=== PATIENT | female | born 1955 | race Caucasian/White ===

== ENCOUNTER 2017-02-28 16:05 | Inpatient (IN) ==
[2017-02-28] MEDS ORDERED: NS 500 ML IV ONE (16:38)
[2017-02-28] MEDS ORDERED: PHENERGAN IV ONE ×2 (16:38→20:00)
[2017-02-28] MEDS ORDERED: SODIUM CHLORIDE 0.9% INJ ONE ×2 (16:38→20:00)
[2017-02-28 17:27] LABS: MANUAL DIFF NEEDED? NO
[2017-02-28 17:35] LABS: BASO% 0.2 % (0.0-0.8); HEMATOCRIT 44.9 % (37.0-47.0); HEMOGLOBIN 15.3 g/dL (12.0-16.0); IMM GRAN# 0.03 X1000 (0.0-0.04); IMM GRAN% 0.2 % (0.0-0.5); LYMPH# 1.89 X1000 (1.2-3.4); LYMPH% 15.1 % (20.5-51.1); MCH 30.1 PG (27-31); MCHC 34.1 g/dL (33-37); MCV 88.4 FL (81-99); MONO# 0.62 X1000 (0.11-0.59); MONO% 4.9 % (1.7-9.3); NEUT% 79.6 % (42.2-75.2); PLT 325 X1000 (130-400); RBC 5.08 XMIL (4.2-5.4)
[2017-02-28 17:49] LABS: ALBUMIN 4.1 g/dL (3.5-5.0); CALCIUM 8.5 mg/dL (8.8-10.2); TOTAL BILIRUBIN 0.71 mg/dL (0.20-1.00); TOTAL PROTEIN 6.7 g/dL (6.3-8.3)
--- NOTE | 2017-02-28 17:54 | PROVIDER DOCUMENTATION ---
This chart was entered by Selena Alcala Scribe, acting as scribe for Karthik Stuart MD. HPI-General Adult - General Source: patient - History of Present Illness -Gen Adult Nature of Presenting Problems: 61 Y/O F presents to ER by EMS with the complain nausea/vomit and diarrhea. pt states that she was in the store and started to feel sick and came to her and started to vomit. pt states that she felt weakness in her L side and called ambulance. pt has hx of gastropresis and has had this kind of episode in the past. Location of Pain/Injury: reports: other (L side weakness) Pain Radiation: reports: no radiation Severity: reports: moderate Onset/Duration: reports: just prior to arrival Timing: reports: still present Associated Symptoms: reports: diarrhea, nausea, vomiting Similar Symptoms Previously?: Yes Recently seen or treated by another doctor?: No <Karthik Stuart - Last Filed: 02/28/17 17:54> - General Source: patient <DiamanteEarl WhitneyMitchell - Last Filed: 02/28/17 20:59> - General Chief Complaint: N/V/D Stated Complaint: DECREASED LOC, FOUND IN CAR Time Seen by Provider: 02/28/17 16:32 Allergies/Adverse Reactions: Patient Allergies Allergy/AdvReac Type Severity Reaction Status Date / Time metoclopramide [From Reglan] AdvReac NAUSEA/VOMI Verified 02/28/17 16:36 TING Home Medications: Home Medication List Medication Instructions Recorded Confirmed Last Taken Type Insulin Glargine [Lantus] 60 unit SUBQ QHS 10/23/14 02/28/17 02/27/17 21:00 History Venlafaxine [Effexor] 75 mg PO DAILY 10/23/14 02/28/17 02/28/17 08:00 History Ondansetron HCl [Zofran] 1 - 2 tab PO Q6H PRN PRN #15 tablet 05/18/15 02/28/17 02/28/17 16:00 Rx Insulin Regular, Human [Novolin R] 1 each SUBQ AC + HS 05/20/15 02/28/17 21:00 History Promethazine [Phenergan] 25 mg PO Q6H PRN PRN #30 tablet 05/23/15 02/28/17 Unknown Rx Levothyroxine Sodium [Synthroid] 1 tab PO DAILY 02/28/17 02/28/17 02/28/17 08: 00 History Review of Systems - Adult - REVIEW OF SYSTEMS - ADULT Constitutional: reports: no symptoms reported Eyes: reports: no symptoms reported Ears, Nose, Mouth & Throat: reports: no symptoms reported Cardiovascular: reports: no symptoms reported Respiratory: reports: no symptoms reported Gastrointestinal: reports: diarrhea, nausea, vomiting. denies: abdominal pain Genitourinary: reports: no symptoms reported Musculoskeletal: reports: other (L side weakness). denies: back pain, neck pain Integumentary: reports: no symptoms reported Neurological: reports: no symptoms reported Psychiatric: reports: no symptoms reported Endocrine: reports: no symptoms reported Hematologic/Lymphatic: reports: no symptoms reported Allergic/Immunologic: reports: no symptoms reported All Other Systems: Reviewed and Negative <Karthik Stuart - Last Filed: 02/28/17 17:54> - REVIEW OF SYSTEMS - ADULT Constitutional: denies: fever <Earl Bobby - Last Filed: 02/28/17 20:59> Past History - Adult - PAST MEDICAL HISTORY-ADULT Review of Records: reports: Old Records Reviewed, Nursing Assessment Review Cardiovascular: reports: other (hypotension) Gastrointestinal: reports: GERD, ulcer, other (gallbladder dyskinesis, gastroparesis) Psychiatric: reports: anxiety, depression Endocrine/Immune: reports: Diabetes - PRIOR SURGERIES/PROCEDURES Surgical/Procedure History: reports: EGD, colonoscopy, cholecystectomy, BTL, other (breast bx) - IMMUNIZATION STATUS Childhood Immunizations: See Nurse Assessment Flu Vaccine: See Nurse Assessment <Karthik Stuart - Last Filed: 02/28/17 17:54> - PAST MEDICAL HISTORY-ADULT Review of Records: reports: Old Records Reviewed, Nursing Assessment Review, Medications Reviewed, Social history reviewed & non-contributory. <Earl Bobby - Last Filed: 02/28/17 20:59> Physical Exam-General - PHYSICAL EXAM-ADULT Initial Vital Signs Reviewed: Yes - CONSTITUTIONAL General Appearance: mild distress, lethargic - EYES Eyes: PERRL/EOMI, pink conjunctivae - HEAD, EARS, NOSE, MOUTH & THROAT HENMT: moist mucous membranes, normal ENT inspection, TMs normal - NECK Neck: non-tender, full range of motion, supple - RESPIRATORY Respiratory: chest non-tender, lungs clear, normal breath sounds - CARDIOVASCULAR Cardiovascular: normal peripheral pulses, regular rate, rhythm, no edema - GASTROINTESTINAL (ABDOMEN) Abdominal Exam: normal bowel sounds, non tender, soft - MUSCULOSKELETAL Back Exam: normal inspection, no CVA tenderness, no vertebral tenderness Extremity: normal inspection. negative: no pedal edema, no calf tenderness - SKIN Integumentary: normal color, normal turgor, warm/dry - NEUROLOGIC Neurologic: grossly normal, no motor/sensory deficits - PSYCHIATRIC Psych/Mental Status: normal mood/affect, normal thought content, normal thought process, oriented x 3 <Karthik Stuart - Last Filed: 02/28/17 17:54> - PHYSICAL EXAM-ADULT Initial Vital Signs Reviewed: Yes - CONSTITUTIONAL General Appearance: mild distress <Earl Bobby - Last Filed: 02/28/17 20:59> Progress - PLAN OF CARE/RESULTS Progress/Plan/Lab Results: Vital Signs - 8 hr 02/28/17 16:22 Temperature 98.0 F Pulse Rate 74 Respiratory Rate 22 Blood Pressure 155/93 O2 Sat by Pulse Oximetry 100 Result Diagrams: 02/28/17 17:12 02/28/17 17:12 - CHANGE OF SHIFT REPORT (ED Provider) Report Given and Care Transferred to:: Time of Transfer: 17:54 Items Pending: Labs <Karthik Stuart - Last Filed: 02/28/17 17:54> - PLAN OF CARE/RESULTS Progress/Plan/Lab Results: Vital Signs - 8 hr 02/28/17 16:22 02/28/17 18:08 02/28/17 20:28 Temperature 98.0 F Pulse Rate 74 91 H 82 Respiratory Rate 22 20 Blood Pressure 155/93 166/81 150/76 O2 Sat by Pulse Oximetry 100 99 98 Laboratory Results - last 24 hr 02/28/17 02/28/17 17:12 17:12 WBC 12.55 H RBC 5.08 Hgb 15.3 Hct 44.9 MCV 88.4 MCH 30.1 MCHC 34.1 RDW Std Deviation 12.4 Plt Count 325 MPV 11.0 H Immature Gran % (Auto) 0.2 Neut % (Auto) 79.6 H Lymph % (Auto) 15.1 L [place] % (Auto) 4.9 Eos % (Auto) 0.0 Baso % (Auto) 0.2 Immature Gran # (Auto) 0.03 Neut # (Auto) 9.99 H Lymph # (Auto) 1.89 [place] # (Auto) 0.62 H Eos # (Auto) 0.00 Baso # (Auto) 0.02 Sodium 132 L Potassium 4.0 Chloride 92 L Carbon Dioxide 27 Anion Gap 13 BUN 11 Creatinine 1.2 H Estimated GFR/1.73 m2 46 BUN/Creatinine Ratio 9 Glucose 276 H Calculated Osmolality 274 Calcium 8.5 L Total Bilirubin 0.71 AST 16 ALT 16 Alkaline Phosphatase 68 Total Protein 6.7 Albumin 4.1 Globulin 2.6 Albumin/Globulin Ratio 1.6 Orders Category Date Time Status NPO Diet 02/28/17 16:37 Active CBC WITH ELECTRONIC DIFF [HEME] Stat Lab 02/28/17 17:12 Completed COMPREHENSIVE METABOLIC PANEL [CHEM] Stat Lab 02/28/17 17:12 Completed UA NIMS W/REFLEX CULT [URINALYSIS] Stat Lab 02/28/17 16:38 Uncollected 0.9% Sodium Chloride Inj [Ns] 500 ml Med 02/28/17 16:38 Discontinued IV 999 mls/hr Morphine Med 02/28/17 20:56 Once 4 mg IV NOW ONE Ns 1000 ml IV Bolus X1 Med 02/28/17 20:56 Ordered 0.9% Sodium Chloride Inj [Ns] 1,000 ml IV 999 mls/hr Ondansetron [Zofran] Med 02/28/17 20:00 Discontinued 8 mg IV NOW ONE Promethazine [Phenergan] Med 02/28/17 16:38 Discontinued 25 mg IV NOW ONE Promethazine [Phenergan] Med 02/28/17 20:00 Discontinued 25 mg IV NOW ONE Sodium Chloride 0.9% Med 02/28/17 16:38 Discontinued 10 ml INJ NOW ONE Sodium Chloride 0.9% Med 02/28/17 20:00 Discontinued 10 ml INJ NOW ONE Result Diagrams: 02/28/17 17:12 02/28/17 17:12 - REASSESSMENT Reassessment #1 Time Reassessed: 20:59 (despite zofran 8mg and phenergan 50 mg IV still dry heaving) Status: unchanged <Earl Bobby - Last Filed: 02/28/17 20:59> Departure <Karthik Stuart - Last Filed: 02/28/17 17:54> - Departure Date of Disposition Decision: 02/28/17 Time of Disposition Decision: 20:57 Certified Medical Emergency: Emergent - Critical Care Note This patient required my direct & personal management of CC.: No <Earl Bobby - Last Filed: 02/28/17 20:59> - Departure DIAGNOSIS: Diabetic gastroparesis Disposition: ADMITTED INPATIENT 09 Condition: Fair Referrals and Follow-Ups: Claudio Aguilar [Primary Care Provider] - Attestation - Physician/ MARANDA Attestation Patient care was provided by Advanced Practice Provider:: No The physician spent face to face time with patient:: Yes Advanced Practice Provider documentation review:: Supervising physician onsite and consulted in the evaluation and care of this patient. The physician did have a face to face encounter with the patient. <Earl Bobby - Last Filed: 02/28/17 20:59> This chart was documented by the indicated scribe, (Selena Alcala Scribe) and accurately reflects the services I performed and decisions made by me, Karthik Stuart MD, as attested by the provider's signature.
[2017-02-28] MEDS ORDERED: ZOFRAN IV ONE (20:00)
[2017-02-28] MEDS ORDERED: MORPHINE IV ONE (20:56)
[2017-02-28] MEDS ORDERED: NS 1,000 ML IV ONE (20:56)
[2017-02-28 21:48] LABS: URINE CULTURE NEEDED? NO; URINE MICRO REVIEW NEEDED? NO; URINE SOURCE CATH
[2017-02-28 21:51] LABS: BILIRUBIN URINE NEGATIVE (NEGATIVE); BLOOD URINE NEGATIVE (NEGATIVE); COLOR YELLOW; GLUCOSE URINE >1000 mg/dL (NEGATIVE); LEUKOCYTES URINE NEGATIVE (NEGATIVE); NITRITE URINE NEGATIVE (NEGATIVE); PH URINE 7.5; PROTEIN URINE TRACE mg/dL (NEGATIVE); SP GRAVITY URINE 1.026; TURBIDITY URINE CLEAR (CLEAR); UR EPITHELIAL CELLS <10 /HPF (<10); URINE BACTERIA NEGATIVE /HPF; URINE RBC <10 /HPF (<10); URINE WBC <10 /HPF (<10); UROBILINOGEN URINE 2 mg/dL (NORMAL)
[2017-02-28] MEDS ORDERED: DEMEROL IM ONE (21:54)
[2017-02-28] MEDS ORDERED: OFIRMEV 1000 MG/ISOTONIC SOLN 1,000 MG/100 ML BOTTLE IV ONE (21:55)
[2017-02-28] MEDS ORDERED: SODIUM CHLORIDE 0.9% INJ SCH (22:00)
[2017-02-28] MEDS: PROTONIX IV SCH (22:21)
[2017-02-28] MEDS ORDERED: COMPAZINE IV PRN (23:10)
[2017-02-28 23:19] LABS: HEMATOCRIT 44.7 % (37.0-47.0); HEMOGLOBIN 15.2 g/dL (12.0-16.0)
[2017-02-28] MEDS: NS 1,000 ML IV SCH (23:31)
--- NOTE | 2017-03-01 00:55 | ED EKG INTERP ---
This chart was entered by Leora Gutierrez Scribe, acting as scribe for Earl Bobby MD. EKG Interpretation - EKG Time of EKG reading by physician:: 21:28 EKG Read and Signed by:: Earl Bobby EKG Interpretation (*Must complete 3 of following elements*): Abnormal Rate: 77 Rhythm: normal sinus rhythm Comments: prolonged QT Attestation - Physician/ MARANDA Attestation Patient care was provided by Advanced Practice Provider:: No The physician spent face to face time with patient:: Yes Advanced Practice Provider documentation review:: Supervising physician onsite and consulted in the evaluation and care of this patient. The physician did have a face to face encounter with the patient. This chart was documented by the indicated scribe, (Leora Gutierrez Scribe) and accurately reflects the services I performed and decisions made by me, Earl White MD, as attested by the provider's signature.
[2017-03-01] MEDS ORDERED: ZOSYN ONE (01:28)
[2017-03-01] MEDS: ZOSYN 3.375 GM in NS 50 ML IV SCH ×4 (01:45→20:43)
[2017-03-01] MEDS ORDERED: ZOFRAN IV PRN (02:00)
[2017-03-01] MEDS ORDERED: MORPHINE IV PRN (04:00)
[2017-03-01] MEDS: NS 1,000 ML IV SCH (05:22)
[2017-03-01] MEDS: SYNTHROID PO SCH ×2 (05:43→06:48)
--- NOTE | 2017-03-01 05:45 | HISTORY AND PHYSICAL ---
PRIMARY CARE PROVIDER: Dr. Aguilar. CHIEF COMPLAINT: Abdominal pain with nausea, vomiting, diarrhea as well as headache. HISTORY OF PRESENT ILLNESS: Ms. Rodas is an 89-year-old female who presented to the ER this afternoon with complaints of onset of abdominal pain with nausea, vomiting and diarrhea as well as a headache. She states that at approximately 3:00 in the afternoon today she began having a left-sided headache. She reports associated symptoms of some left-sided weakness in her hand as well as some tingling in her left hand and left foot. She denied any other neurological symptoms. She denies any visual disturbances, dizziness, difficulty in speech or ataxia. She also reported at this time that she began having epigastric pain, and also reported multiple episodes of nausea and vomiting. She reports anywhere from 10-20. She also reports diarrhea as well though states that she chronically has problems with periods of constipation and diarrhea. She denied any hematemesis, hematochezia or melena. Though upon evaluation in the ER the patient did have a bowel movement that had light red blood noted throughout. A Hemoccult stool was performed which was positive. She has previously seen Dr. Rosado a pulp operator in [place]. Upon evaluation in the ER, she was tender in the epigastric area and bowel sounds were present in all 4 quadrants. The patient reports that she does have a history of migraines. She reported she had not had any since going through menopause. She had not had one for a few years though approximately 2 months ago she began having one every 2-3 weeks. She reports that normally she does have an aura with her headaches and that she does have sensitivity to light/ sound and nausea/ vomiting as well. She did report that back in August she did have a similar migraine headache then for which she did have some similar neurologic symptoms of weakness though she denies being diagnosed with a stroke or any previous history of stroke. After evaluating the patient in the ER and finding that she did have hematochezia present along with a slightly elevated white blood cell count, we did decide to go ahead and do a CT of the abdomen and pelvis with IV contrast only which did show that she had left-sided colonic wall thickening consistent with colitis. At this time, we will admit her for further treatment and evaluation of her colitis as well as her migraines. REVIEW OF SYSTEMS: A 12 point review of systems was conducted with the patient. All were negative except for pertinent positives as mentioned above in HPI. PAST MEDICAL HISTORY: 1. Insulin-dependent diabetes mellitus. 2. Gastroparesis. 3. Anxiety. 4. Depression. 5. Gastroesophageal reflux disease. 6. Peptic ulcer disease. 7. Chronic constipation and diarrhea. 8. Migraine headaches. 9. Thyroid cancer, status post thyroidectomy. PAST SURGICAL HISTORY: 1. Bilateral tubal ligation. 2. Cholecystectomy. 3. Breast biopsy. 4. Thyroidectomy. SOCIAL HISTORY: Patient currently lives at home. She is . She denies any past or present tobacco, alcohol or illicit drug use. FAMILY HISTORY: Positive for hypertension, heart disease, and breast cancer. ALLERGIES: To Reglan. HOME MEDICATIONS: 1. Novolin R as directed subcu before meals and at bedtime. 2. Synthroid 25 mcg tablet 1 p.o. daily. 3. Lantus 60 units subcutaneous at bedtime. 4. Phenergan 25 mg p.o. q.6 hours p.r.n. for nausea. 5. Zofran 4 mg tablets 1-2 tablets p.o. q.6 hours p.r.n. 6. Effexor 75 mg p.o. daily. DIAGNOSTIC DATA/LABORATORY RESULTS: White blood cell count 12.5, hemoglobin 15.3, hematocrit 44.9, and platelet count is 325,000. Sodium 132, potassium 4, chloride 92, bicarb 27, BUN 11, creatinine 1.2 and GFR 46. Glucose 276. Calcium 8.5. Liver function tests are within normal limits. Urinalysis was obtained via catheter and was positive for trace protein , ketones greater than 1000 glucose, though was negative for blood, nitrites, leukocytes, white blood cells, or bacteria. EKG showed normal sinus rhythm with a prolonged QT at a rate of 72 with QTc of 504. CT of the abdomen and pelvis with IV contrast only with reduced contrast dosing showed no diverticulitis though there was distal colonic wall thickening consistent with colitis. Mild wall thickening of the right colon also representing mild colitis. No bowel obstruction noted. Also noted that there was a small nodular density in the right lower lung which was indeterminate. PHYSICAL EXAMINATION: VITAL SIGNS: Temperature 98.4 degrees, heart rate 78, respirations 16, blood pressure 179/79, and oxygen saturation is 95% on room air. GENERAL: Ms. Rodas is a pleasant 61-year-old female who is resting on the ER stretcher. She was in no acute distress though during our examination she did appear to be uncomfortable due to she was still quite nauseated. HEENT: Head is atraumatic, normocephalic. Pupils are equal, round and reactive to light, and were 3 mm bilaterally and brisk. Extraocular movements were intact. Subconjunctival were pink. Oral mucosa was slightly dry. Oropharynx was clear. NECK: Supple. Trachea midline. No carotid bruits noted upon auscultation bilaterally. CARDIOVASCULAR: Patient has normal S1, S2. No murmurs, gallops, or rubs appreciated. Regular with a regular rate and rhythm. PULMONARY: Patient has symmetrical chest expansion bilaterally. Lung sounds are clear to auscultation in bilateral full faulkner. ABDOMEN: Soft. Nondistended. The patient did have some tenderness noted in epigastric area upon palpation. Bowel sounds were present in all 4 quadrants and were normoactive. EXTREMITIES: No cyanosis, clubbing, or edema noted. Pulse, motor and sensory were intact in all extremities. Pedal pulses were 3+ bilaterally. INTEGUMENTARY: Patient's skin is pink, warm, dry, and intact. No lesions or sores noted. NEUROLOGICAL: Patient is alert and oriented x4. Cranial nerves 2-12 do appear to be grossly intact. The patient reports some left hand tingling as well as left foot tingling though does have positive sensation and movement in all extremities. She also reports that she feels as though she had some weakness in her left hand though upon examination this is generalized weakness. Her hand grasps were equal bilaterally. She had no arm drift noted. No facial droop noted. And all visual faulkner were intact. ASSESSMENT AND PLAN: 1. Colitis. The patient's CT did show that she had left-sided colonic wall thickening consistent with colitis. We have placed her on Zosyn 3.375 g IV q.[address] orders for stool studies as well. We have placed a consult with gastroenterology and will await their evaluation and further recommendations. 2. Lower gastrointestinal bleed. As mentioned, patient did have a positive Hemoccult stool. This could possibly be secondary to her colitis. We will hold any anticoagulants. We will keep her NPO at this time. We will do a series of hemoglobin and hematocrit. We will monitor her hemodynamic status closely. 3. Leukocytosis. This is likely secondary to her colitis. We will continue treatment as mentioned for #1 and continue to follow. 4. Fluid volume depletion. This is likely secondary to her nausea and vomiting. We will continue with normal saline at 200 mL/h x2 L and then will reassess her fluid volume status. She did receive a 1-1/2 L bolus in the ER. 5. Intractable nausea and vomiting. We will continue with antiemetics of Compazine and Zofran. 6. Gastroparesis. We will continue with antiemetics as mentioned above. 7. Diabetes mellitus type 2. We will continue with a sliding scale lispro insulin and her Lantus though we have reduced the doses to 20 units given that she is NPO at this time and we will closely monitor her fingerstick blood sugars. 8. Migraine. At this time, we decided not to perform a CT scan of the patient' s head given that she does have a previous history of migraines and she is reporting a left-sided headache with left-sided symptoms of tingling in her hand and foot, and some weakness though there are no other neurological deficits present at this time. We will closely monitor this. We have placed a consult with Neurology and we will await their evaluation and further recommendations. The patient was placed on medical floor telemetry. She will have vital signs q. 6 hours. DVT prophylaxis provided with SCDs. We will do strict intake and output. We will repeat a CBC and CMP in the morning. We have also added other studies of a CRP and sedimentation rate, PT and PTT as well as stool studies. Further orders and recommendations pending hospital course, diagnostic studies, and physician evaluation. Dictated by PORSHA Eldridge for Avery Morris MD If antiemetics fail, consider using EES IV. Empirically start pt on IV PPIs and modify insulin dosing accordingly. Seen,examined and discussed above plan with PIPE INSULATOR. cc: Avery Morris MD MTDD
[2017-03-01 05:56] LABS: INR 0.98; PROTIME 10.3 Seconds (9.2-11.7)
--- NOTE | 2017-03-01 05:57 | EKG Report ---
Test Performed on : 02/28/2017 9:28:55 PM Test Reason : numbness Blood Pressure : / mmHG Vent. Rate : 077 BPM Atrial Rate : 077 BPM P-R Int : 114 ms QRS Dur : 092 ms QT Int : 446 ms P-R-T Axes : 077 009 029 degrees QTc Int : 504 ms Normal sinus rhythm. Prolonged QT Abnormal ECG No previous ECGs available Unconfirmed Result
[2017-03-01 06:00] LABS: BASO% 0.1 % (0.0-0.8); HEMATOCRIT 43.4 % (37.0-47.0); HEMOGLOBIN 14.8 g/dL (12.0-16.0); IMM GRAN# 0.03 X1000 (0.0-0.04); IMM GRAN% 0.2 % (0.0-0.5); LYMPH# 0.97 X1000 (1.2-3.4); LYMPH% 6.3 % (20.5-51.1); MANUAL DIFF NEEDED? YES; MCH 30.5 PG (27-31); MCHC 34.1 g/dL (33-37); MCV 89.5 FL (81-99); MONO# 0.22 X1000 (0.11-0.59); MONO% 1.4 % (1.7-9.3); MPV 11.2 FL (7.4-10.4); PLT 265 X1000 (130-400); RBC 4.85 XMIL (4.2-5.4)
[2017-03-01 06:08] LABS: AGAP 14; ALBUMIN 4.1 g/dL (3.5-5.0); ALKALINE PHOSPHATASE 72 U/L (32-104); BUN 9 mg/dL (8-22); CALCIUM 7.4 mg/dL (8.8-10.2); CHLORIDE 99 mmol/L (98-107); COSMO 287; GOT 13 U/L (10-30); GPT 15 U/L (10-36); SODIUM 139 mmol/L (136-145); TCO2 26 mmol/L (25-35); TOTAL BILIRUBIN 0.71 mg/dL (0.20-1.00); TOTAL PROTEIN 6.8 g/dL (6.3-8.3)
[2017-03-01 06:25] LABS: BANDS 2 % (0-1); LYMPHS 6 % (21-51); MONO 2 % (1-9)
[2017-03-01 06:48] LABS: SED RATE 0 mm/hr (0-20)
[2017-03-01] MEDS: HUMALOG SUBQ SCH ×4 (07:00→21:52)
--- NOTE | 2017-03-01 07:21 | Diag Imaging Result Doc PS360 ---
CT ABD/PELVIS W/ IV CONT ONLY - 02/28/2017 INDICATION: Abd. Pain, Hematochezia TECHNIQUE: A CT dose reduction protocol was used. COMPARISON: 05/18/2015 FINDINGS: The lung bases are clear and the heart size is normal. There is a small, stable hiatal hernia. Stable left renal cyst. Stable cholecystectomy clips. There is moderate wall thickening of the sigmoid colon and rectum new From prior. No bowel obstruction. No free air or free fluid. Urinary bladder and uterus are normal. Several left posterior rib deformities are stable. There are moderate degenerative changes of the spine. No acute or suspicious bony lesion. IMPRESSION: Proctocolitis of the sigmoid colon and rectum. No other acute findings. Electronically signed by Lyle Erwin 03/01/2017 7:18 AM
[2017-03-01] MEDS: EFFEXOR PO SCH (11:06)
[2017-03-01 12:08] LABS: HEMATOCRIT 40.2 % (37.0-47.0); HEMOGLOBIN 13.5 g/dL (12.0-16.0)
--- NOTE | 2017-03-01 14:15 | CONSULTATION ---
DATE OF CONSULTATION: 03/01/2017 NEUROLOGY CONSULT NOTE: Ms. Rodas is 61 years old and she had recent episode of left-sided weakness and numbness with vision disturbance. History from the patient is that she felt well earlier in the day yesterday. She noticed weakness and numbness in the left leg and within just a few minutes had a sense that she could not use her left arm or leg and left face was drooped. Speech was slurred. She did not attempt to chew or swallow. Vision was disturbed, mostly "spots" in her vision without definite focal features. She did not have blindness or diplopia. She initially told me she did not have any headache but when I pointed out the admission note indicated left-sided headache was a chief complaint, she said there might have been just a little bit of headache. She was nauseated but did not vomit. She rested and episode resolved in about 30 minutes, by her report to me this morning. She reports an identical episode occurred about 6 months ago. This was also confined to the left side and resolved in 30 minutes without major headache. She has not had any other similar spells. She has a past history of episodic headache. She reports headaches would usually begin with vision disturbance, "seeing lights" and she is not certain whether this was in 1 visual field or global. She would then develop "thumping" dull left forehead and retroorbital headache which would gradually progress, sometimes over a few days, become intense left hemicranial pounding and throbbing pain associated with photophobia and nausea. She had very seldom vomiting with these episodes. She reports headache would often persist for as long as 2 weeks. Headaches were more frequent in her young adulthood and teens. After menopause, these episodes were much less frequent and less intense. There is no history of serious head injury. She has never had diagnosed stroke , seizure, other neurologic event. She has not made any recent medication changes. She does not take medicine for blood pressure control. Her systolic blood pressures have been elevated consistently during this admission. She reports she checks her blood sugars at home and they are generally less than 200. She did not check blood sugar or blood pressure around the time of her recent episode. She reports last workup was brain imaging done twice in 2014, once in [place] and once in [place] and she was told both times imaging was unremarkable. On exam, she is awake, alert, attentive, appropriate, oriented. She appears cognitively intact on gross testing. Speech is not dysarthric. Language function is intact on bedside testing. Head and neck are unremarkable. Visual faulkner are full tested by confrontational finger counting. Extraocular movements are full. Pupils are round and both react briskly to bright light. Facial sensation and motility are normal and symmetric. Gag is intact. Tongue is midline. Palate elevates in the midline. Shoulder shrug is good bilaterally. Strength is normal in the arms and legs. She does well on [id number] testing bilaterally. I did not test her gait. She has a stocking pattern of sensory loss tested to pinprick and light touch, equal on the left and right. Plantar response is silent bilaterally. Reflexes are absent at the ankles, 1+ symmetrically at the wrists. Proprioception is good at the great toe MTP joint and at the index finger MP joint bilaterally. IMPRESSION: 1. Episode of reported left hemiparesis and numbness with uncertain vision disturbance and minimal headache resolving spontaneously yesterday. There is not a definite neurologic deficit on exam now. She reports an identical episode with similar time frame, same side involved, 6 months ago. I suspect this is migraine. TIA is not impossible, but seems less likely. Seizure would be a remote consideration. The episode does not sound like transient hypoglycemia or other toxic/metabolic problem. She presented with moderately elevated blood pressure but history and clinical features are not typical of hypertensive encephalopathy. 2. She has a past history of episodic headache, which is most likely migraine. Her reported lengthy duration of headache is not typical but other features are typical of migraine. She reports she reduced caffeine from several servings of cola, tea, coffee daily to usually 1 cola daily a few months ago but she has not made any more recent caffeine change. She had not made any other medication changes that might explain more dramatic migraine episode occurring yesterday and 6 months ago. RECOMMENDATION: To be thorough, I think we should repeat brain MRI electively. That can be done while she is here or she could be discharged with outpatient MRI soon. I believe she will need to be started on medicine to help blood pressure control and that could be started here or could be deferred to her primary physician, Dr. Aguilar in [place]. I encouraged her to continue aggressive management of blood sugar and to take her medicines as directed. We briefly discussed potential role for caffeine with headache and she will be careful with that. I will be glad to see Ms. Rodas again as an outpatient if needed. Thank you for asking me to see her here. cc: Checo Kenyon III, MD MTDD
--- NOTE | 2017-03-01 14:36 | PROGRESS NOTE ---
DATE: 03/01/2017 SUBJECTIVE: Today Ms. Rodas referred to be doing a little better. Has vomited 1 time here but has also had multiple bowel movements. OBJECTIVE: Vital signs: Blood pressure is 150/73, pulse of 75, respirations 18 , temperature 98.9 degrees. General: Ms. Rodas is a 61-year-old female. She was in bed. She did not seem to be in any remarkable distress. HEENT: Mucosa is pink and moist. Anicteric. Acyanotic. Neck: Supple. Chest: Clear. Cardiovascular: Regular rate and rhythm. There are no murmurs, no rubs, no gallops. Abdomen: Soft, minimally tender in the epigastrium. Bowel sounds are present. Extremities: No pedal edema. MEDICARE COMPLIANCE AUDITOR: Patient is awake, alert, oriented. There is no focal neurological deficit. Sensation is completely intact and power is 5/5 in all extremities. Reflexes are normal bilaterally. High executive functions are intact. I did not explore her gait. LABORATORY DATA: WBC is 15.41, hemoglobin is 13.5, Chemistries reviewed. Sodium is 139, potassium is 4.0, chloride is 99, bicarb is 26, glucose is 286. CURRENT MEDICATIONS: Include 1. Lantus 20 subcutaneous daily sliding scale. 2. Levothyroxine 25 mcg daily. 3. PPI 40 mg IV. 4. Zosyn q.6 hour. 5. Effexor. IMAGING STUDIES: A CT scan of the abdomen and pelvis was done on presentation which showed proctocolitis of the sigmoid colon and rectum. No other acute findings. ASSESSMENT: 1. Proctocolitis of the sigmoid colon and rectum unsure duration. According to the patient she has had chronic recurrent diarrhea and I think underlying inflammatory bowel disease versus irritable bowel syndrome needs to be rule out. Gastroenterology has been consulted. We are going to continue with the current antibiotics, hydration, will be waiting on some of the stool cultures have been ordered. 2. Gastroparesis flare. We are going to add erythromycin to her management. 3. Hypothyroidism. Will continue with levothyroxine. 4. History of orthostatic hypotension. We will do the orthostatic vitals and go from there. I understand from the beginning she was clinically looking dry so it could just be from dehydration but the patient refers that she has history of orthostatic hypotension, has been evaluated by Cardiology in the past for this. 5. Left side weakness and tingling sensation. This has resolved. It lasted for about 30 minutes according to the patient. She does not have it anymore but she is concerned that this could potentially come again, not sure if this is a form of a transient ischemic attack. Patient is hypertensive, is diabetic so she does have risk factors for atherosclerotic disease. We will do an MRI of the brain to rule out possible TIA or a mini stroke that has resolved. Patient is pending neurology consult. 6. Diabetes mellitus. Patient is on insulin. We are going to continue with the regimen. Will also order an A1c to see how her glucose has been controlled in the last 3-4 months. 7. Hypertension. Will continue with her medications. cc: Alvarado Mathew MD MTDD
[2017-03-01] MEDS ORDERED: ATIVAN IV ONE (14:55)
--- NOTE | 2017-03-01 15:40 | Diag Imaging Result Doc PS360 ---
MRI BRAIN W/O CONTRAST - 03/01/2017 INDICATION: left side weakness COMPARISON: None FINDINGS: There is no area of restricted diffusion. The ventricles and sulci are normal in size and contour. No intracranial mass or hemorrhage. Midline structures including the optic chiasm and pituitary are normal. There is significant sinusitis of the left maxillary sinus, ethmoid sinuses and frontal sinus. There are a few scattered small subcortical and deep white matter areas of increased signal intensity in the cerebral hemispheres. These are nonspecific. IMPRESSION: 1. Nonspecific cerebral white matter hyperintensities, statistically most likely to be chronic microvascular disease. 2. Significant left-sided sinusitis. Electronically signed by Lyle Erwin 03/01/2017 3:38 PM
[2017-03-01 18:32] LABS: HEMATOCRIT 39.6 % (37.0-47.0); HEMOGLOBIN 13.3 g/dL (12.0-16.0)
[2017-03-01] MEDS ORDERED: LANTUS SUBQ SCH (21:00)
[2017-03-01] MEDS: PROTONIX IV SCH (21:46)
--- NOTE | 2017-03-02 00:38 | CONSULTATION ---
DATE OF CONSULTATION: 03/01/2017 REFERRING PROVIDER: Avery Morris M.D. PRIMARY CLINICAL FACULTY: Tina Dwyer M.D. INDICATION FOR CONSULTATION: 1. Nausea with vomiting. 2. Left-sided abdominal pain. 3. Diarrhea. 4. Blood in stool. HISTORY OF PRESENT ILLNESS: The patient is a 61-year-old white female who has a history of insulin-dependent diabetes mellitus and gastroparesis. She also has a history of gastroesophageal reflux and peptic ulcer disease. She had been in her usual state of health until approximately 2 years ago. After her , she developed intermittent abdominal pain associated with diarrhea alternating with constipation. She is followed by Dr. Tina Dwyer . She has also seen Dr. Rosado in [place] in gastroenterology. On the morning of admission , 02/28/2017, she had the onset of a headache, left-sided hemiparesis, vision disturbance and minimal headache. In addition, she had the onset of the above GI symptoms including left-sided abdominal pain, nausea with vomiting, diarrhea and worsening of her headache. She reports 10-20 episodes of vomiting as well as more than 8-10 bowel movements. She presented to the emergency room and was admitted. While in the emergency room, she had hematochezia and was noted to have leukocytosis on a white blood cell count. CT scan of the abdomen and pelvis with IV contrast only revealed left-sided acute colitis. Because of her symptoms, we are asked to participate in her care. REVIEW OF SYSTEMS: Remarkable for nausea with vomiting, epigastric pain and fatigue. She also reports left lower quadrant pain, intermittent hematochezia and rectal tenderness from presumed hemorrhoids. PAST MEDICAL HISTORY: 1. Diabetes mellitus, insulin dependent. 2. Gastroparesis. 3. Anxiety. 4. Depression. 5. Gastroesophageal reflux disease. 6. Peptic ulcer disease. 7. Chronic constipation alternating with diarrhea. 8. Migraine headaches. 9. Thyroid cancer. PAST SURGICAL HISTORY: 1. Bilateral tubal ligation. 2. Cholecystectomy. 3. Breast biopsy. 4. Thyroidectomy. SOCIAL HISTORY: The patient is a . She lives at home. There is no history of alcohol, tobacco or recreational drug use. FAMILY HISTORY: Positive for hypertension, heart disease and breast cancer. There is no history of colon cancer. MEDICATION ALLERGIES: Reglan. HOME MEDICATIONS: 1. Novolin R. 2. Synthroid. 3. Lantus. 4. Phenergan. 5. Zofran. 6. Effexor. PHYSICAL EXAM: General: On exam she is ill-appearing but in no acute distress. Vital signs: Her blood pressure is 134/57, pulse 75, respiration 18, temperature of 98.1 degrees. Within the last 6 hours she has had 3 large volume watery diarrheal stools according to the nurse. There is also rectal bleeding intermittently after defecation. HEENT: Negative for jaundice. Her conjunctivae are normal. Her pupils are reactive. Oropharyngeal mucosa membranes dry. Neck: Is supple. Chest: Is clear to auscultation with normal respiratory effort. Cardiovascular: Reveals regular rate and rhythm with no gallops or rubs. Abdomen: Is soft. There is tenderness in the epigastrium as well as the left lower quadrant. There is no rebound or guarding. Extremities: Bilaterally are negative for cyanosis, clubbing, or edema. Skin: Is warm and pink but her cheeks are flushed. Neurologic: She is alert and oriented x4. OBJECTIVE DATA: Reveals a hemoglobin of 14.8 with hematocrit of 43.4 and a white count of 15.41. Her platelet count is 265,000. Her PT is 10.3 with an INR 0.98 and PTT of 24. Sodium is 139, potassium 4.0, chloride 99, CO2 26, BUN 9, creatinine 0.9 with a glucose of 289. Calcium is 7.4, total bilirubin 0.71, AST 13, ALT 15, alkaline phosphatase 72, total protein 6.8 and albumin 4.1. C-reactive protein is 19.01. IMPRESSION: 1. Acute left-sided colitis with proctitis on CT scan. 2. Blood in the stool. 3. Known gastroparesis. 4. Refractory nausea with vomiting. 5. Epigastric pain. 6. Left lower quadrant pain. 7. Leukocytosis. 8. History of peptic ulcer disease. RECOMMENDATION: 1. The patient presents with diarrhea that is associated with acute colitis and proctitis on CT scan. I agree with Marcie as you are currently doing. 2. Please check stool for C. difficile colitis. Once infection has been ruled out, one can consider steroids in the event that this is new onset inflammatory bowel disease. 3. She will likely need a flexible sigmoidoscopy versus colonoscopy on Saturday. I will arrange for an unprepped exam to be done by Dr. Tina Dwyer. 4. With regard to her nausea with vomiting, continue antiemetics as you are doing. 5. The patient has an allergy to Reglan. It may be reasonable to consider short course of IV erythromycin. If she continues to have vomiting over the next 24 hours, I would discontinue the Zofran due to drug interactions and begin Phenergan. This will allow for 1 to begin a course of IV erythromycin to help with the nausea with vomiting. 6. Because of her refractory vomiting, I will also place her on the schedule for an EGD to be performed by Dr. Tina Dwyer on Saturday. 7. Please obtain an inflammatory bowel disease profile, follow daily CRPs as marker of inflammation and monitor her leukocytosis. 8. Additional recommendations to follow based on her clinical course. 9. Dr. Tina Dywer will return on Saturday to assume care. cc: MD Tina Russell MD MTDD
[2017-03-02] MEDS: ZOSYN 3.375 GM in NS 50 ML IV SCH ×2 (01:18→09:40)
[2017-03-02 01:29] LABS: HEMATOCRIT 37.9 % (37.0-47.0); HEMOGLOBIN 12.7 g/dL (12.0-16.0)
[2017-03-02] MEDS: HUMALOG SUBQ SCH ×2 (06:08→12:58)
[2017-03-02] MEDS: SYNTHROID PO SCH (06:08)
[2017-03-02 06:14] LABS: MANUAL DIFF NEEDED? NO
[2017-03-02 06:17] LABS: BASO% 0.3 % (0.0-0.8); EOS# 0.01 X1000 (0.0-0.7); EOS% 0.1 % (0.0-10.0); HEMATOCRIT 38.3 % (37.0-47.0); IMM GRAN# 0.02 X1000 (0.0-0.04); IMM GRAN% 0.2 % (0.0-0.5); LYMPH# 3.19 X1000 (1.2-3.4); LYMPH% 33.8 % (20.5-51.1); MCH 30.7 PG (27-31); MCHC 33.9 g/dL (33-37); MCV 90.3 FL (81-99); MONO# 0.51 X1000 (0.11-0.59); MONO% 5.4 % (1.7-9.3); MPV 10.8 FL (7.4-10.4); NEUT% 60.2 % (42.2-75.2); PLT 271 X1000 (130-400); RBC 4.24 XMIL (4.2-5.4)
[2017-03-02 06:36] LABS: AGAP 9; BUN 10 mg/dL (8-22); CALCIUM 7.1 mg/dL (8.8-10.2); CHLORIDE 105 mmol/L (98-107); COSMO 282; POTASSIUM 3.1 mmol/L (3.5-5.1); SODIUM 142 mmol/L (136-145); TCO2 28 mmol/L (25-35)
[2017-03-02 06:40] LABS: HEMOGLOBIN A1C 10.5 % (4.8-6.0)
[2017-03-02] MEDS: EFFEXOR PO SCH (09:39)
[2017-03-02] MEDS ORDERED: ERYTHROMYCIN 250 MG in NS 150 ML IV SCH (10:30)
[2017-03-02] MEDS ORDERED: FLAGYL PO SCH (13:00)
[2017-03-02 13:28] VITALS: BP 143/65
--- NOTE | 2017-03-02 16:35 | PROGRESS NOTE ---
DATE: 03/02/2017 I went in early on this morning to see Ms. Rodas. She was actually sleeping , she was able to wake up with gentle tap on her shoulder. She says she was feeling very well. I asked if she has thrown up she said no. This encounter was done completely in the presence of her attending nurse Ms. Raquel Hidalgo. I asked Ms. Rodas if she has any bowel movement because we needed to have a stool sample for C. difficile. She said she has not had any and she is just getting some seeping from the bottom. She denied any abdominal pain. When I asked about her headaches and her neurological symptoms on the left arm she said they are completely resolved. I did notify her that from Dr. Falk's note it appeared that there is a plan to do EGD and colonoscopy to figure out why she has had this findings on the CT scan. She did say that she has had multiple of these EGDs and colonoscopy with her GI doctors in [place] so she does not understand why another 1 will be done here and I did tell her that if she has had multiple done and has followup with GI already then we will discharge her to follow up with her GI doc since her neurological symptoms seems to have all improved. She said that was okay. She said thank you she was okay for the discharge. Couple hours later I got a call from Dr. Falk trying to know why the patient was being discharged because the family members wanted to talk to her. I just narrated what transpired, since the nurse was there I asked her to also verify from the nurse. From medical standpoint Ms. Rodas got admitted because of abdominal pain, diarrhea and some neurological symptoms. Has been evaluated by Neurology and MRI has been done which is reassuring without any acute findings. Her neurological symptoms is improved so she is clinically stable to be discharged. She will follow up with her GI physician in [place]. cc: Alvarado Mathew MD [facility]
[2017-03-02] MEDS ORDERED: GLUCOPHAGE PO SCH (17:00)
[2017-03-03] MEDS ORDERED: PRILOSEC PO SCH (07:00)
[2017-03-03] MEDS ORDERED: LEVAQUIN PO SCH (09:00)
--- NOTE | 2017-03-03 20:52 | DISCHARGE SUMMARY ---
ADMISSION DATE: 02/28/2017 DISCHARGE DATE: 03/02/2017 DISPOSITION: Home. FOLLOWUP: 1. Dr. Kenyon. 2. Dr. Dwyer. 3. Dr. Aguilar. 4. Patient's GI physician in [place]. CONSULTATIONS DURING THIS ADMISSION: 1. GI was consulted. Patient was seen by Dr. Falk. 2. Neurology was consulted. Patient was seen by Dr. Kenyon. INVASIVE PROCEDURES DONE DURING THIS ADMISSION: None. IMAGING STUDIES: 1. A CT scan of the abdomen and pelvis was done which shows proctocolitis. 2. A brain MRI showed nonspecific cerebral white matter hyperintensities most likely to be chronic microvascular disease, significant left-sided sinusitis. INVASIVE PROCEDURES DONE DURING THIS ADMISSION: None. ADMISSION DIAGNOSES: 1. Colitis. 2. Lower GI bleed. 3. Leukocytosis. 4. Fluid depletion. 5. Migraine. DIAGNOSES AT THE TIME OF DISCHARGE: 1. Proctocolitis on CT scan. 2. History of gastroparesis. 3. Hypothyroidism. 4. History of orthostatic hypotension. 5. Left-sided weakness and tingling sensation, resolved. MRI negative. 6. Diabetes mellitus with presenting A1c of 10.5 indicative of noncompliance. 7. Hypertension. 8. Sinusitis. DISCHARGE MEDICATIONS: 1. Effexor 75 mg daily. 2. Sliding scale insulin at home. 3. Levofloxacin 250 p.o. daily. 4. Metronidazole 250 q. 8h. 5. Metformin 850 b.i.d. 6. Insulin glargine 35 units b.i.d. PRESENTING COMPLAINT: Abdominal pain, nausea, vomiting, diarrhea and headache. HISTORY OF PRESENTING COMPLAINT: Ms. Rodas is a 61-year-old, female , with a lot of comorbidities including chronic constipation, thyroid disease, and insulin- dependent diabetes mellitus, who presented to the emergency department because of abdominal pain, diarrhea, headaches and some numbness of the left side. The patient was admitted with the concern of possible TIA. A CT scan that was done in the emergency department also revealed proctocolitis. The patient was admitted for further medical care. HOSPITAL COURSE: The patient was stable during the hospital course. She was adequately hydrated and the diarrhea actually subsided. GI was consulted and Neurology was also consulted. MRI was done which was completely unremarkable except for chronic microvascular changes. According to the patient, the left-sided numbness and weakness had also resolved and there were no more headaches. The diarrhea as I said, was also resolved because there was an order for C. difficile to be done, but patient could not give any sample. Dr. Falk, the heavy equipment operator/paver, saw the patient and there was a plan to do EGD or colonoscopy; however, when I brought this up with the patient, she told me categorically that she has done multiple EGDs and multiple colonoscopies in the past with a GI physician in [place] and it has always been negative and she does not understand why another one would be ordered. I did explain to her it was reordered because of the findings on the CT scan. However, she was completely asymptomatic at that point. No more abdominal pain and she was tolerating her feeding, so I thought it was reasonable for her to do those studies on outpatient basis. First of all, get the inflammation under control with antibiotics and then get the studies done again on outpatient with her heavy equipment operator/paver, which she did understand. In terms of the neurological symptoms, they completely resolved on their own and MRI was reassuring. The patient was seen by neurologist. At the day of the discharge, we felt patient was stable. However, I understand that the brother came and was very upset because Dr. Falk has already told them that her condition was very critical, very serious and needed to be addressed in the hospital. However, I did explain very clearly to the patient in the presence of the nurse that her colitis on the CT scan could be treated easily with antibiotics. Her white cell had normalized on the day of discharge, and vitals were completely normal and did not show any signs of toxicity, so she was okay to go to follow up with her GI doctor since she does not want any more of the procedures to be done in the hospital. Time spent for discharge was 35 minutes. cc: MD CORTEZ Barreto
== END 2017-03-02 14:50 | disposition home or self-care (01) ==
LOC: ED 16:05 → 4N 16:06 → SUATTDRO 16:06 → 4N 03-01 20:20
PROVIDERS: ATTEND Internal Medicine

== ENCOUNTER 2019-02-13 04:52 | Inpatient (IN) ==
[2019-02-13] MEDS ORDERED: ZOFRAN IV ONE (05:24)
[2019-02-13] MEDS ORDERED: NS 1,000 ML IV ONE ×3 (05:24→10:55)
--- NOTE | 2019-02-13 05:27 | PROVIDER DOCUMENTATION ---
HPI-Abdominal Pain/GI Problem - General Chief Complaint: Nausea/Vomiting Stated Complaint: N/V Time Seen by Provider: 02/13/19 05:11 Allergies/Adverse Reactions: Patient Allergies Allergy/AdvReac Type Severity Reaction Status Date / Time metformin AdvReac NAUSEA/VOMI Verified 02/13/19 05:04 TING metoclopramide [From Reglan] AdvReac NAUSEA/VOMI Verified 02/13/19 05:04 TING Home Medications: Home Medication List Medication Instructions Recorded Confirmed Last Taken Type Venlafaxine [Effexor] 150 mg PO DAILY 10/23/14 02/13/19 02/28/17 08:00 History Insulin Regular, Human [Novolin R] 1 each SUBQ AC + HS 05/20/15 05/22/18 02/27/17 21:00 History Atorvastatin Calcium 80 mg PO DAILY 05/22/18 02/13/19 Unknown History Insulin Glargine [Lantus] 60 unit SUBQ HS 05/22/18 05/22/18 Unknown History Lisinopril 10 mg PO DAILY 05/22/18 02/13/19 Unknown History Gabapentin 300 mg PO HS 05/24/18 02/13/19 Unknown History Lorazepam 1 mg PO Q8H PRN PRN 05/24/18 02/13/19 Unknown History Levofloxacin [Levaquin] 500 mg PO DAILY #5 tab 02/16/19 Unknown Rx Levothyroxine [Synthroid] 200 microgm PO DAILY #30 tab 02/16/19 Unknown Rx - History of Present Illness-ABD Nature of Presenting Problems: A 63 Y/O FEMALE PRESENTS WITH C/O NAUSEA, VOMITING AND ABD PAIN. PER THE PT THE SYMPTOMS STARTED ABOUT 6 HRS AGO. HAS BEEN VOMITING ONCE EVERY 20-30 MINUTES. ALSO C/O CHEST PAIN THAT GOES TO HER BACK. ABD PAIN IS PRESENT ALL OVER. DENIES ANY DIFFICULTY BREATHING, DIARRHEA OR CONSTIPATION. DENIES ANY FEVER OR CHILLS. PER PT HER BS USUALLY RUNS IN 300'S Abdominal Pain Onset Location: reports: generalized abdomen Quality of Pain: reports: cramping, sharp Severity in ED: reports: moderate Onset/Duration: reports: 4-6 hours ago Timing: reports: still present, intermittent, getting worse Activities at Onset: reports: sleep Exposure to sick contacts?: No Modifying Factors: improves with: nothing Associated Symptoms: reports: back/neck pain, chest pain, nausea, vomiting. denies: arm pain, constipation, cough, diaphoresis, diarrhea, dizziness, EENT symptoms, fatigue, fever/chills, genitourinary problems, heartburn, shortness of breath Last BM: unsure Dark Stools Present?: reports: none noticed Rectal Bleeding: reports: none Rectal Pain: reports: none Emesis Description: reports: clear Bruising or Bleeding Gums?: No Similar Symptoms Previously?: Yes Recently seen or treated by another doctor?: No Review of Systems - Adult - REVIEW OF SYSTEMS - ADULT Constitutional: reports: see HPI Eyes: denies: no symptoms reported Ears, Nose, Mouth & Throat: denies: no symptoms reported Cardiovascular: reports: see HPI Respiratory: reports: see HPI Gastrointestinal: reports: see HPI Genitourinary: denies: no symptoms reported Musculoskeletal: denies: no symptoms reported Integumentary: denies: no symptoms reported Psychiatric: denies: no symptoms reported Hematologic/Lymphatic: denies: no symptoms reported Allergic/Immunologic: denies: no symptoms reported Past History - Adult - PAST MEDICAL HISTORY-ADULT Review of Records: reports: Nursing Assessment Review, Medications Reviewed, Social history reviewed & non-contributory. Major Childhood Illnesses: reports: denies history Cardiovascular: reports: other (hypotension) Gastrointestinal: reports: GERD, ulcer, other (gallbladder dyskinesis, gastroparesis) Musculoskeletal: reports: denies history Psychiatric: reports: anxiety, depression Endocrine/Immune: reports: Diabetes - PRIOR SURGERIES/PROCEDURES Surgical/Procedure History: reports: EGD, colonoscopy, cholecystectomy, BTL, other (breast bx) - IMMUNIZATION STATUS Childhood Immunizations: See Nurse Assessment Flu Vaccine: See Nurse Assessment Physical Exam-General - PHYSICAL EXAM-ADULT Initial Vital Signs Reviewed: Yes - CONSTITUTIONAL General Appearance: alert, moderate distress - EYES Eyes: PERRL/EOMI, pink conjunctivae. negative: photophobia, sclera injected, subconjunctival hemorrhage - HEAD, EARS, NOSE, MOUTH & THROAT HENMT: normocephalic/atraumatic, normal ENT inspection, TMs normal, pharynx normal. negative: moist mucous membranes - NECK Neck: supple - RESPIRATORY Respiratory: lungs clear, normal breath sounds, no respiratory distress, no accessory muscle use - CARDIOVASCULAR Cardiovascular: regular rate, rhythm, no edema, no JVD, no murmur - GASTROINTESTINAL (ABDOMEN) Abdominal Exam: soft, tenderness (GENERALIZED). negative: guarding, rigid - MUSCULOSKELETAL Back Exam: no CVA tenderness, no vertebral tenderness Extremity: no pedal edema, no calf tenderness - SKIN Integumentary: normal color, warm/dry - NEUROLOGIC Neurologic: grossly normal - PSYCHIATRIC Psych/Mental Status: normal mood/affect, oriented x 3 Progress - PLAN OF CARE/RESULTS Progress/Plan/Lab Results: Vital Signs - 8 hr 02/13/19 05:02 Temperature 98.2 F Pulse Rate 77 Respiratory Rate 16 Blood Pressure 90/61 O2 Sat by Pulse Oximetry 99 Orders Category Date Time Status FSBS [Finger Stick Blood Sugar (ED)] DIRECTED Care 02/13/19 05:11 Active 06:30 PT WAS ADMINISTERED ZOFRAN AN IVF, CONTINUES HAVE SYMPTOMS. WILL TRY PHENERGAN. INSULIN 10 UNITS ORDERED Result Diagrams: 02/15/19 05:49 02/15/19 05:49 - XRAY 1 XRAY Study: Chest Impression: Normal - CT/MRI 1 CT Study: Abdomen, Pelvis Impression: See EMR Report (EXAM: CT ABDOMEN/PELVIS W/O CONTRAST HISTORY: abd pain, nausea, vomiting TECHNIQUE: CT abdomen and pelvis without contrast COMPARISON: 02/28/2017 FINDINGS: There are calcified right hilar lymph nodes with right-sided granuloma. No pleural effusions. There is a small hiatal hernia. The gallbladder has been removed. No focal hepatic, splenic, or pancreatic abnormality identified on this noncontrasted exam. Normal adrenal glands. No renal stones. No hydronephrosis. Moderate atherosclerosis. No aortic aneurysm. Normal appendix. No abscess. No bowel obstruction. Tiny fat filled umbilical hernia. The urinary bladder is moderately distended and is normal. Normal uterus. Neither ovary is enlarged. The scattered pelvic phleboliths. IMPRESSION: 1.Cholecystectomy 2.Small hiatal hernia. Tiny fat filled umbilical hernia This exam was performed using automated exposure control, adjustment of mA or kV according to patient size, and/or use of iterative reconstruction technique. Electronically signed by Abhijit Erwin 02/13/2019 8:05 AM) - CHANGE OF SHIFT REPORT (ED Provider) 1 Report Given and Care Transferred to:: DR KASPER Time of Transfer: 07:00 Items Pending: Labs, XRAY Results, CT/MRI Results Departure - Departure Date of Disposition Decision: 02/13/19 Time of Disposition Decision: 11:20 DIAGNOSIS: Hyperglycemia, Abdominal pain Disposition: ADMITTED INPATIENT 09 Certified Medical Emergency: Emergent Condition: Stable - Critical Care Note This patient required my direct & personal management of CC.: Yes Total Time (mins): 30 Critical Care Statement: This patient required my direct personal management to treat or rule out processes, the absence of which, could potentiallly result in sudden, clinically significant life or limb threatening deterioration. Attestation - Physician/ MARANDA Attestation Patient care was provided by Advanced Practice Provider:: No The physician spent face to face time with patient:: Yes Advanced Practice Provider documentation review:: Supervising physician onsite and consulted in the evaluation and care of this patient. The physician did have a face to face encounter with the patient.
[2019-02-13 05:43] LABS: BASO# 0.03 X1000 (0.0-0.2); BASO% 0.4 % (0.0-0.8); HEMATOCRIT 42.1 % (37.0-47.0); HEMOGLOBIN 14.7 g/dL (12.0-16.0); IMM GRAN# 0.02 X1000 (0.0-0.04); IMM GRAN% 0.3 % (0.0-0.5); LYMPH# 1.26 X1000 (1.2-3.4); LYMPH% 16.1 % (20.5-51.1); MCH 30.8 PG (27-31); MCHC 34.9 g/dL (33-37); MCV 88.1 FL (81-99); MONO# 0.24 X1000 (0.11-0.59); MONO% 3.1 % (1.7-9.3); MPV 11.2 FL (7.4-10.4); NEUT# 6.26 X1000 (1.4-6.5); NEUT% 80.1 % (42.2-75.2); PLT 246 X1000 (130-400); RBC 4.78 XMIL (4.2-5.4); RDW 12.9 % (11.5-14.5); WBC 7.81 X1000 (4.8-10.8)
[2019-02-13 06:05] LABS: ESTIMATED GFR > 60
[2019-02-13] MEDS ORDERED: HUMULIN R SUBQ ONE (06:17)
[2019-02-13 06:21] LABS: AGAP 15; ALBUMIN 4.5 g/dL (3.5-5.0); ALKALINE PHOSPHATASE 104 U/L (32-104); BUN 12 mg/dL (8-22); CALCIUM 8.7 mg/dL (8.8-10.2); CHLORIDE 95 mmol/L (98-107); CK PROFILE 164 U/L (24-173); COSMO 293; CREATININE 0.7 mg/dL (0.5-0.9); GOT 49 U/L (10-30); GPT 92 U/L (10-36); SODIUM 136 mmol/L (136-145); TCO2 26 mmol/L (25-35); TOTAL PROTEIN 6.8 g/dL (6.3-8.3)
[2019-02-13] MEDS ORDERED: HUMULIN R (PARKWAY) ONE (06:21)
[2019-02-13] MEDS ORDERED: PHENERGAN IV ONE (06:21)
[2019-02-13] MEDS ORDERED: SODIUM CHLORIDE 0.9% INJ ONE (06:21)
[2019-02-13 06:23] LABS: GLUCOSE 475 mg/dL (70-104)
[2019-02-13 07:11] LABS: URINE BACTERIA 4+ /HFP; URINE CAST NONE SEEN /LPF; URINE CRYSTAL NONE SEEN /HPF; URINE EPITHELIAL CELLS <10 /HPF (<10); URINE RBC <10 /HPF (<10); URINE YEAST PRESENT /HPF
[2019-02-13 07:12] LABS: BILIRUBIN URINE NEGATIVE (NEGATIVE); BLOOD URINE NEGATIVE (NEGATIVE); KETONE URINE 2+(Moderate) mg/dL (NEGATIVE); LEUKOCYTES URINE 1+ (NEGATIVE); NITRITE URINE NEGATIVE (NEGATIVE); PROTEIN URINE 1+(30 mg/dL) mg/dL (NEGATIVE); URINE SOURCE CLEAN CATCH; UROBILINOGEN URINE NORMAL
[2019-02-13 07:13] LABS: CLARITY SL. CLOUDY (CLEAR)
[2019-02-13 07:14] LABS: COLOR YELLOW
--- NOTE | 2019-02-13 07:25 | Diag Imaging Result Doc PS360 ---
EXAM: CHEST-1 VIEW HISTORY: cp TECHNIQUE: Chest single view COMPARISON: 05/22/2018 FINDINGS: The lungs are well expanded. The heart is not enlarged. The vessels are not distended. There are no infiltrates. No effusion identified. Right granuloma. IMPRESSION: Negative exam. Electronically signed by Abhijit Erwin 02/13/2019 7:22 AM
--- NOTE | 2019-02-13 08:07 | Diag Imaging Result Doc PS360 ---
EXAM: CT ABDOMEN/PELVIS W/O CONTRAST HISTORY: abd pain, nausea, vomiting TECHNIQUE: CT abdomen and pelvis without contrast COMPARISON: 02/28/2017 FINDINGS: There are calcified right hilar lymph nodes with right-sided granuloma. No pleural effusions. There is a small hiatal hernia. The gallbladder has been removed. No focal hepatic, splenic, or pancreatic abnormality identified on this noncontrasted exam. Normal adrenal glands. No renal stones. No hydronephrosis. Moderate atherosclerosis. No aortic aneurysm. Normal appendix. No abscess. No bowel obstruction. Tiny fat filled umbilical hernia. The urinary bladder is moderately distended and is normal. Normal uterus. Neither ovary is enlarged. The scattered pelvic phleboliths. IMPRESSION: 1.Cholecystectomy 2.Small hiatal hernia. Tiny fat filled umbilical hernia This exam was performed using automated exposure control, adjustment of mA or kV according to patient size, and/or use of iterative reconstruction technique. Electronically signed by Abhijit Erwin 02/13/2019 8:05 AM
[2019-02-13] MEDS ORDERED: HUMALOG (PARKWAY) IV ONE (09:27)
[2019-02-13] MEDS ORDERED: COMPAZINE IV ONE (09:28)
[2019-02-13] MEDS ORDERED: SODIUM CHLORIDE 0.9% INJ PRN (12:01)
[2019-02-13] MEDS ORDERED: PHENERGAN IV PRN (12:01)
[2019-02-13] MEDS ORDERED: ZOFRAN IV PRN (12:01)
[2019-02-13] MEDS: ROCEPHIN 1 GM in NS 50 ML IV SCH (12:34)
[2019-02-13] MEDS ORDERED: ATIVAN PO PRN (13:33)
--- NOTE | 2019-02-13 15:26 | HISTORY AND PHYSICAL ---
TAX EXAMINING TECHNICIAN: Dr. Eric Aguilar. CHIEF COMPLAINT: Nausea and vomiting. HISTORY OF PRESENT ILLNESS: Ms. Rodas is a 63-year-old female. She presents to the ER with complaints of nausea and vomiting since last p.m. The patient states she has a past medical history of gastroparesis, insulin dependent diabetes mellitus, thyroid cancer and hypertension. The patient states she has vomited multiple times since 9 p.m. last night. She is complaining of some chills. She also has some pain in her chest and stomach area. The patient states she has not been having any diarrhea. She does not have any fever. She has not noticed any blood in her emesis or her stool. The patient denies constipation. The patient denies any dysuria, hematuria, urgency or frequency. The patient is lying in the hospital bed. She is able to answer all my questions appropriately. She denies any pain at this present time but does have some abdominal tenderness with palpation. The patient denies any cough or congestion. Laboratory findings show glucose of 475, plasma lactate 1.7, white blood cell count 7.81. Urinalysis shows 1+ protein, 2+ ketones, 1+ white blood cells, 4+ bacteria. PAST MEDICAL HISTORY: Insulin dependent diabetes, thyroid cancer, hypertension and gastroparesis. PAST SURGICAL HISTORY: Thyroidectomy, cholecystectomy, tubal ligation and left lumpectomy. SOCIAL HISTORY: The patient is a retired general office dispatcher. She denies any smoking, alcohol or drug abuse. FAMILY HISTORY: Non contributory. ALLERGIES: METFORMIN AND METOCLOPRAMIDE. MEDICATIONS: 1. Plavix 75 mg p.o. daily. 2. Lantus. 3. Novolin R. 4. Synthroid 50 mcg daily. 5. Atorvastatin 80 mg p.o. daily. 6. Gabapentin 300 mg p.o. q bedtime. 7. Lisinopril 10 p.o. daily. 8. Lorazepam 1 mg p.o. q 8 hours p.r.n. 9. Effexor 150 mg p.o. daily. LABORATORY AND DIAGNOSTICS: White blood cell count 7.81, red blood cell count 4.78, hemoglobin 14.7, hematocrit 42.1, platelet count 246,000. Sodium 136, potassium 4.0, chloride 95, carbon dioxide 26, anion gap 15, BUN 12, creatinine 0.7, GFR greater than 60, glucose initially 475 and is now 331, calcium 8.7, total bilirubin 0.6, AST 49, ALT 92, creatinine kinase 164. Troponin 0.023. Plasma lactate 1.7. Urinalysis shows 1+ protein, 2+ ketones, positive 1+ white blood cell count 10-20, bacteria 4+, glucose 3+. Yeast is present. Acetone level negative. Chest x-ray is negative. CT of the abdomen and pelvis shows cholecystectomy and a small hiatal hernia and tiny fat-filled umbilical hernia. REVIEW OF SYSTEMS: A 10-point review of systems has been obtained, and all are negative except for what is stated above in HPI. PHYSICAL EXAMINATION: VITAL SIGNS: Temperature 98.5, pulse rate 53, respiratory rate 18, blood pressure 151/65, O2 sat 97% on room air, weight 158 pounds, height 5 feet 5 inches. GENERAL: This is a 63-year-old female. She is lying on the hospital bed. She is in no acute distress at present time. She is well nourished and well developed. HEENT: Atraumatic, normocephalic. Pupils equal, round and reactive to light. Extraocular movements are intact. Mucous membranes are moist. NECK: Supple. No lymphadenopathy. Trachea is midline. No JVD, no thyromegaly, no bruits. CARDIOVASCULAR: Regular rate and rhythm. No murmurs, gallops or rubs appreciated. RESPIRATORY: Lung sounds are clear with equal chest excursions. Respirations are nonlabored with no accessory muscle usage. GI: Abdomen is soft and tender. It is nondistended. Bowel sounds are present x 4. NEUROLOGIC: Cranial nerves II through XII are intact. The patient is lying on the hospital bed. She is somewhat drowsy from medication. She is able to answer my questions appropriately and is completely oriented. MUSCULOSKELETAL: Full distal strength noted. No abnormalities. No deformities. EXTREMITIES: No clubbing, cyanosis or edema. DP and PT pulses are present and palpable. SKIN: Warm, dry and intact. No rashes, no bruises, no diaphoresis. ASSESSMENT AND PLAN: 1. Gastroparesis. We have admitted this patient to the medical floor. We have placed her on IV fluid hydration. We are treating her with Zofran and Phenergan for her nausea. We are going to keep her n.p.o. at this time. I have started her on IV Nexium 40 mg q 24 hours. 2. Insulin dependent diabetes. The patient was very hyperglycemic on admission, so she was provided with insulin Humulin R 10 units in the ER. She was also given insulin Lispro 10 units. She was given IV fluid boluses in the ER. She has been started on IV fluid hydration. We are going to check her fingerstick blood sugars AC and HS. We are going to provide her with sliding scale insulin. Home medications have not been reconciled on her insulin, so we will await for these to be reconciled, and then we will get those reordered. 3. Thyroid cancer with thyroidectomy. The patient is on Synthroid at home. This has not been reconciled with her home medications. So, we will await for them to be reconciled before starting her Synthroid back. 4. Hypertension. The patient is on home medications for hypertension. I have reordered these. 5. Anxiety and depression. The patient is on home anxiety and depression medications. I have reordered these for her. 6. High cholesterol. The patient is on atorvastatin daily. I have reordered her atorvastatin. 7. GI prophylaxis. I have placed the patient on Nexium 40 mg IV q 24 hours. 8. DVT prophylaxis. I have placed her on SCDs. 9. UTI. I have started the patient on IV antibiotics for her UTI. There is a culture pending. We have admitted this patient to the medical floor. We have placed her on IV fluid hydration and have given her IV antibiotics for her UTI. We will be checking her blood sugars AC and HS. We are going to provide her with sliding scale insulin and restart her home insulin when her meds are reconciled. We have also restarted her home blood pressure medicines. We will restart her home Synthroid once it is reconciled. I have restarted her anxiety and depression medication. We are going to repeat labs in the morning and provide her with Zofran and Phenergan for her nausea and vomiting. All further treatment is pending hospital course and lab data. Dictated by PORSHA De Anda for Pipo Becerra MD cc: Eric Aguilar MD [facility]
[2019-02-13] MEDS: PROTONIX IV SCH (16:01)
[2019-02-13] MEDS: SODIUM CHLORIDE 0.9% INJ SCH (16:04)
[2019-02-13] MEDS: HUMULIN R (PARKWAY) SUBQ SCH ×3 (16:50→20:20)
[2019-02-13] MEDS ORDERED: D50W SYRINGE IV ONE (17:54)
[2019-02-13] MEDS: NS 1,000 ML IV SCH (18:14)
--- NOTE | 2019-02-13 18:54 | HISTORY AND PHYSICAL ---
ADDENDUM: Patient seen and examined by myself. Full note dictated and discussed with nurse practitioner. HISTORY OF PRESENT ILLNESS: Patient presented to the hospital with nausea, vomiting, abdominal pain, diarrhea. Symptoms started several hours prior to presenting to the hospital, but since then, has not been able to keep anything down. She has had intense abdominal pain. Does have a history of gastroparesis from her diabetes. PLAN: We will admit her to the hospital, place her on IV fluids, pain control, Zofran, and will follow. Please see full note. cc: Pipo Becerra MD
[2019-02-13] MEDS: NEURONTIN PO SCH (20:20)
[2019-02-14] MEDS: NS 1,000 ML IV SCH (04:00)
[2019-02-14 06:12] LABS: BASO% 0.3 % (0.0-0.8); HEMATOCRIT 35.1 % (37.0-47.0); HEMOGLOBIN 11.6 g/dL (12.0-16.0); IMM GRAN% 0.2 % (0.0-0.5); LYMPH# 2.59 X1000 (1.2-3.4); LYMPH% 26.5 % (20.5-51.1); MCH 30.2 PG (27-31); MCV 91.4 FL (81-99); MONO# 0.67 X1000 (0.11-0.59); MONO% 6.8 % (1.7-9.3); MPV 11.3 FL (7.4-10.4); NEUT# 6.48 X1000 (1.4-6.5); NEUT% 66.2 % (42.2-75.2); PLT 259 X1000 (130-400); RBC 3.84 XMIL (4.2-5.4); RDW 13.2 % (11.5-14.5); WBC 9.79 X1000 (4.8-10.8)
[2019-02-14 06:13] LABS: BASO# 0.03 X1000 (0.0-0.2); IMM GRAN# 0.02 X1000 (0.0-0.04)
[2019-02-14] MEDS: SYNTHROID PO SCH ×2 (06:16)
[2019-02-14] MEDS: HUMULIN R (PARKWAY) SUBQ SCH ×4 (06:22→21:55)
[2019-02-14 06:28] LABS: HEMOGLOBIN A1C 10.8 % (4.8-6.0)
[2019-02-14 06:29] LABS: AGAP 9; ALBUMIN 3.4 g/dL (3.5-5.0); ALKALINE PHOSPHATASE 72 U/L (32-104); BUN 12 mg/dL (8-22); CALCIUM 7.4 mg/dL (8.8-10.2); CHLORIDE 109 mmol/L (98-107); COSMO 290; CREATININE 0.8 mg/dL (0.5-0.9); ESTIMATED GFR > 60; GLUCOSE 92 mg/dL (70-104); GOT 17 U/L (10-30); GPT 50 U/L (10-36); MAGNESIUM 1.8 mg/dL (1.5-2.7); SODIUM 146 mmol/L (136-145); TCO2 28 mmol/L (25-35); TOTAL PROTEIN 5.4 g/dL (6.3-8.3)
[2019-02-14] MEDS ORDERED: KLOR-CON PO ONE (08:09)
[2019-02-14] MEDS: PRINIVIL PO SCH (08:55)
[2019-02-14] MEDS: LIPITOR PO SCH (08:55)
[2019-02-14] MEDS: EFFEXOR PO SCH (08:56)
[2019-02-14] MEDS ORDERED: SYNTHROID PO ONE (09:25)
[2019-02-14] MEDS: ROCEPHIN 1 GM in NS 50 ML IV SCH (11:15)
--- NOTE | 2019-02-14 13:11 | PROGRESS NOTE ---
DATE: 02/14/2019 SUBJECTIVE: The patient notes she is still nauseated. No vomiting. No diarrhea. Denies fevers or chills. Still has diffuse, but mild abdominal pain. PHYSICAL EXAMINATION: Vital Signs Reviewed: Temperature 97 degrees, pulse 69, respiratory 18, BP 107/63. General: Patient is awake, alert, currently in no distress. She is lying in her bed. HEENT: Normocephalic. Neck: Supple. Cardiovascular: Regular rate. Chest: Clear, nonlabored. No wheezing. Abdomen: Soft, obese, nondistended, diffusely mildly tender. Extremities: Moves all extremities. Neurologic: No focal changes. ASSESSMENT: 1. Gastritis in a patient with a known history of gastroparesis. 2. Diabetes with very poor home control an A1c of 10. 3. Hypothyroidism. Thyroid stimulating hormone is 88. Unsure if the patient has been taking her medications or not. We did start her Synthroid yesterday. We will add additional dose today and recheck in the morning. 4. Hypertension. PLAN: We will continue patient in the hospital. Continue to control her blood sugars. Unsure of what she has been taking home medication-michel; therefore we will continue to use sliding scale and restart her home medications today. We will adjust tomorrow if needed. We will adjust her Synthroid as well. May consider erythromycin for gastroparesis, as she has had tardive dyskinesia from Reglan. cc: Pipo Becerra MD
[2019-02-14] MEDS: SODIUM CHLORIDE 0.9% INJ SCH (14:20)
[2019-02-14] MEDS: PROTONIX IV SCH (14:20)
[2019-02-14] MEDS ORDERED: ZOFRAN IV PRN (17:17)
[2019-02-14] MEDS ORDERED: VANCOMYCIN IV PER PHARMACY MISC SCH (17:30)
[2019-02-14] MEDS ORDERED: VANCOMYCIN 1 GM/NS 1 GM/250 ML IVPB IV SCH (18:00)
[2019-02-14] MEDS: VANCOMYCIN 1 GM/NS 1 GM/250 ML IVPB IV SCH (18:14)
[2019-02-14] MEDS: NEURONTIN PO SCH (20:36)
[2019-02-15] MEDS: SYNTHROID PO SCH ×2 (06:07)
[2019-02-15] MEDS: VANCOMYCIN 1 GM/NS 1 GM/250 ML IVPB IV SCH (06:07)
[2019-02-15] MEDS: HUMULIN R (PARKWAY) SUBQ SCH ×4 (06:23→22:17)
[2019-02-15 07:04] LABS: HEMATOCRIT 39.1 % (37.0-47.0); HEMOGLOBIN 12.9 g/dL (12.0-16.0); MCH 30.6 PG (27-31); MCV 92.9 FL (81-99); MPV 11.2 FL (7.4-10.4); RBC 4.21 XMIL (4.2-5.4); RDW 13.1 % (11.5-14.5); WBC 8.2 X1000 (4.8-10.8)
[2019-02-15 07:24] LABS: AGAP 10; ALBUMIN 3.3 g/dL (3.5-5.0); ALKALINE PHOSPHATASE 75 U/L (32-104); BUN 9 mg/dL (8-22); CALCIUM 7.8 mg/dL (8.8-10.2); CHLORIDE 101 mmol/L (98-107); COSMO 281; CREATININE 0.7 mg/dL (0.5-0.9); ESTIMATED GFR > 60; GLUCOSE 182 mg/dL (70-104); GOT 18 U/L (10-30); GPT 44 U/L (10-36); SODIUM 139 mmol/L (136-145); TCO2 28 mmol/L (25-35); TOTAL PROTEIN 5.6 g/dL (6.3-8.3)
[2019-02-15] MEDS ORDERED: SYNTHROID PO ONE (09:12)
[2019-02-15] MEDS: LIPITOR PO SCH (10:03)
[2019-02-15] MEDS: EFFEXOR PO SCH (10:03)
[2019-02-15] MEDS: PRINIVIL PO SCH (10:04)
--- NOTE | 2019-02-15 10:14 | DISCHARGE SUMMARY ---
ADMISSION DATE: 02/13/2019 DISCHARGE DATE: 02/15/2019 DISCHARGE DIAGNOSES: 1. Streptococcus agalactiae urinary tract infection. 2. Hyperglycemia with an elevated A1c at home. 3. Diabetic gastroparesis, improved. 4. Hypothyroidism. TSH is elevated at 80. We have increased her Synthroid from 137 to 200. CONSULTATIONS: None. PROCEDURES: None. BRIEF HOSPITAL COURSE: The patient was admitted to the hospital secondary to urinary tract infection, nausea, vomiting, and hyperglycemia. Thankfully, she continued to improve. On discharge, she has tolerated her regular diet. She notes that she is feeling better. Her nausea is improved. Abdominal pain is improved. She is no longer having fevers or chills. DISCHARGE MEDICATIONS: 1. Levaquin for a total 7 days due to her strep agalactiae UTI. 2. Synthroid 200 mcg daily. 3. She will continue her Plavix, Lantus insulin, lisinopril, and gabapentin as well as Effexor on her home dosing. Greater than 30 minutes was spent in total care. cc: Pipo Becerra MD
[2019-02-15] MEDS: LEVAQUIN PO SCH (10:25)
[2019-02-15] MEDS: PROTONIX IV SCH (13:49)
[2019-02-15] MEDS: SODIUM CHLORIDE 0.9% INJ SCH (13:49)
[2019-02-15] MEDS ORDERED: SODIUM CHLORIDE 0.9% INJ SCH (14:59)
[2019-02-15] MEDS: NS 1,000 ML IV SCH (16:04)
[2019-02-15] MEDS: NEURONTIN PO SCH (22:16)
[2019-02-16] MEDS ORDERED: SYNTHROID PO SCH (07:00)
[2019-02-16] MEDS: NS 1,000 ML IV SCH ×2 (07:41→10:50)
[2019-02-16] MEDS: HUMULIN R (PARKWAY) SUBQ SCH ×2 (07:42→10:49)
[2019-02-16] MEDS: LEVAQUIN PO SCH (08:02)
[2019-02-16] MEDS: PRINIVIL PO SCH (08:02)
[2019-02-16 08:07] VITALS: BP 148/76
[2019-02-16] MEDS ORDERED: EFFEXOR XR PO SCH (09:00)
--- NOTE | 2019-02-16 18:38 | DISCHARGE SUMMARY ---
ADMISSION DATE: 02/13/2019 DISCHARGE DATE: 02/16/2019 Patient seen and examined. She is feeling better. Therefore, she will be discharged home. cc: Pipo Becerra MD
--- NOTE | 2019-02-16 18:41 | PROGRESS NOTE ---
DATE: 02/16/2019 SUBJECTIVE: Patient seen. She notes that she feels a lot better today. She felt a little lightheaded last night, which is what cancelled the discharge, and her blood pressures are low. Interestingly, patient notes that she has had episodes of low blood pressures in the past, and at one point had been placed on some medications starts with an M; I suspect midodrine, but is not currently taking it. PHYSICAL EXAMINATION: Vital Signs: Reviewed. Temperature 98.2 degrees, pulse 70, respiratory rate 18, BP 131/67 with a low last night in the 90 systolic range. General: Patient is awake, alert. She is in no distress. Very pleasant. HEENT: Normocephalic. Neck: Supple. Cardiovascular: Regular rate. No murmurs. Chest: Clear, nonlabored. Abdomen: Soft, nondistended. Extremities: Moves all extremities. ASSESSMENT: 1. Hypotension, resolved. 2. Gastroparesis, stable. 3. Streptococcus agalactiae urinary tract infection, stable. 4. Hypothyroidism. PLAN: Discussed with patient that I expect her thyroid has a lot to do with her low blood pressures. We have increased her Synthroid to 200. She will need to follow up in a week or so to recheck this as an outpatient. Hopefully, she can discharge home later today. cc: Pipo Becerra MD
[2019-02-16] MEDS ORDERED: PROTONIX PO SCH (21:00)
[2019-02-16] MEDS ORDERED: LIPITOR PO SCH (21:00)
--- NOTE | 2019-02-17 13:46 | DISCHARGE SUMMARY ---
ADMISSION DATE: 02/13/2019 DISCHARGE DATE: 02/16/2019 ADDENDUM: Please see previous discharge summary for discharge diagnosis, hospital course, and discharge medication. She was discharged today 02/16/2019 with no changes noted. Dictated by PORSHA Disla for Pipo Becerra MD cc: PORSHA Disla MD
== END 2019-02-16 11:07 | disposition home or self-care (01) | DRG 638 ==
LOC: P.ED 04:52 → P.MEDSURG 04:52 → OBSVTOIN 11:11
PROVIDERS: ATTEND Family Medicine

== ENCOUNTER 2019-09-27 19:30 | Inpatient (IN) ==
--- NOTE | 2019-09-27 20:00 | PROVIDER DOCUMENTATION ---
HPI-Abdominal Pain/GI Problem - General Chief Complaint: N/V/D Stated Complaint: n/v/d Time Seen by Provider: 09/27/19 19:38 Source: patient Allergies/Adverse Reactions: Patient Allergies Allergy/AdvReac Type Severity Reaction Status Date / Time metformin AdvReac Intermediate NAUSEA/VOMI Verified 09/27/19 20:12 TING metoclopramide [From Reglan] AdvReac Intermediate NAUSEA/VOMI Verified 09/27/19 20:12 TING Home Medications: Home Medication List Medication Instructions Recorded Confirmed Last Taken Type Venlafaxine [Effexor] 150 mg PO DAILY 10/23/14 09/27/19 3 Days Ago History ~09/24/19 Insulin Regular, Human [Novolin R] 0 units SUBQ AC + HS 05/20/15 09/27/19 09/25/19 History Insulin Glargine [Lantus] 60 unit SUBQ HS 05/22/18 09/27/19 09/25/19 History Gabapentin 150 mg PO HS 05/24/18 09/27/19 09/27/19 19:00 History Lorazepam 1 mg PO Q8H PRN PRN 05/24/18 09/27/19 1 Week Ago History ~09/20/19 Levothyroxine [Synthroid] 200 microgm PO DAILY #30 tab 02/16/19 09/27/19 09/25/19 Rx - History of Present Illness-ABD Nature of Presenting Problems: 63yo wf presents today with c/o Nausea, vomiting, diarrhea, with multiple falls at home for the past week. Patient states this has been going on since 09/22/19 she has a history of gastroparesis and she has been taking her prescription of phenergan but she is still having problems. She also took Peptol Bismol and did note a couple of stools with melena after taking the Peptol Bismol but it did not relieve her symptoms. Patient is noted to have a skin tear to the right elbow. Patient also states she has not been able to take her medications since she has been vomiting. Patient is non-toxic in appearance. Denies cough, congestion, and dyspnea. Abdominal Pain Onset Location: reports: generalized abdomen Pain Radiation: reports: no radiation Quality of Pain: reports: cramping Severity in ED: reports: mild Onset/Duration: reports: 5 days ago Timing: reports: still present Modifying Factors: improves with: nothing Associated Symptoms: reports: diarrhea, dizziness, fatigue, vomiting, weakness Dark Stools Present?: reports: tarry, other (melena after taking peptol bismol) Review of Systems - Adult - REVIEW OF SYSTEMS - ADULT Constitutional: reports: no symptoms reported Eyes: reports: no symptoms reported Ears, Nose, Mouth & Throat: reports: no symptoms reported Cardiovascular: reports: no symptoms reported Respiratory: reports: no symptoms reported Gastrointestinal: reports: diarrhea, nausea, vomiting Genitourinary: reports: no symptoms reported Musculoskeletal: reports: other (frequent falls) Integumentary: reports: skin sores/ulcer (right elbow) Neurological: reports: dizziness/vertigo Psychiatric: reports: no symptoms reported Endocrine: reports: no symptoms reported Hematologic/Lymphatic: reports: no symptoms reported Allergic/Immunologic: reports: no symptoms reported All Other Systems: Reviewed and Negative Past History - Adult - PAST MEDICAL HISTORY-ADULT Review of Records: reports: Old Records Reviewed, Nursing Assessment Review, Medications Reviewed, Social history reviewed & non-contributory. Major Childhood Illnesses: reports: denies history Cardiovascular: reports: other (hypotension) Respiratory: reports: denies history Gastrointestinal: reports: GERD, ulcer, other (gallbladder dyskinesis, gastroparesis) Obstetrical/Gynecological: reports: denies history Genitourinary: reports: denies history Musculoskeletal: reports: denies history Neurological: reports: denies history Psychiatric: reports: anxiety, depression Endocrine/Immune: reports: Diabetes Other Conditions: reports: denies history - PRIOR SURGERIES/PROCEDURES Surgical/Procedure History: reports: EGD, colonoscopy, cholecystectomy, BTL, other (breast bx) - IMMUNIZATION STATUS Childhood Immunizations: See Nurse Assessment Flu Vaccine: See Nurse Assessment - FAMILY HISTORY Family History: reviewed, not pertinent - SOCIAL HISTORY Smoking: denies Substance Use: denies Living Situation: family Physical Exam-General - PHYSICAL EXAM-ADULT Initial Vital Signs Reviewed: Yes - CONSTITUTIONAL General Appearance: appears well, alert - EYES Eyes: PERRL/EOMI, pale conjunctivae - HEAD, EARS, NOSE, MOUTH & THROAT HENMT: normocephalic/atraumatic. negative: moist mucous membranes (dry) - NECK Neck: non-tender, full range of motion - RESPIRATORY Respiratory: chest non-tender, lungs clear, normal breath sounds, no respiratory distress, no accessory muscle use - CARDIOVASCULAR Cardiovascular: normal peripheral pulses, regular rate, rhythm, no edema - GASTROINTESTINAL (ABDOMEN) Abdominal Exam: normal bowel sounds, soft, tenderness. negative: distended - LYMPHATIC Lymphatic: no adenopathy - MUSCULOSKELETAL Extremity: normal range of motion, non-tender, normal inspection, no pedal edema Peripheral Pulses: radial (R): 2+, radial (L): 2+, dorsalis-pedis (R): 2+, dorsalis-pedis (L): 2+ - SKIN Integumentary: warm/dry, pallor - NEUROLOGIC Neurologic: grossly normal - PSYCHIATRIC Psych/Mental Status: normal mood/affect, normal thought content, oriented x 3 Progress - PLAN OF CARE/RESULTS Progress/Plan/Lab Results: Orders Category Date Time Status flat [FLAT/UPRIGHT ABD/1 VIEW CHEST] [RAD] Stat Exams 09/27/19 19:52 Ordered CBC WITH DIFF [HEME] Stat Lab 09/27/19 19:52 Uncollected COMPREHENSIVE METABOLIC PANEL [CHEM] Stat Lab 09/27/19 19:52 Uncollected PROTIME WITH INR [COAG] Stat Lab 09/27/19 19:52 Uncollected Result Diagrams: 09/27/19 19:55 09/27/19 19:55 - XRAY 1 XRAY Study: Abdomen (FINDINGS: The chest is clear. There is a nonobstructive bowel gas pattern. No free air or abnormal calcifications. IMPRESSION: Negative exam. Electronically signed by Lyle Erwin 09/27/2019 8:18 PM) - CONSULTS/PCP/HOSPITALIST Notification #1 *Consult/PCP/Hospitalist*: Dr. Morris Time Discussed: 21:33 Reason/Comments: in ER will admit - CHANGE OF SHIFT REPORT (ED Provider) 1 Report Given and Care Transferred to:: donna Time of Transfer: 21:23 Items Pending: CT/MRI Results Departure - Departure Date of Disposition Decision: 09/27/19 Time of Disposition Decision: 21:31 DIAGNOSIS: Cystitis Abdominal pain Qualifiers: Abdominal location: unspecified location Qualified Code(s): R10.9 - Unspecified abdominal pain Nausea & vomiting Qualifiers: Vomiting type: unspecified Vomiting Intractability: unspecified Qualified Code(s): R11.2 - Nausea with vomiting, unspecified Diarrhea Qualifiers: Diarrhea type: unspecified type Qualified Code(s): R19.7 - Diarrhea, unspecified Disposition: ADMITTED INPATIENT 09 Certified Medical Emergency: Emergent Condition: Fair Referrals and Follow-Ups: None,PCP [Primary Care Provider] - - Critical Care Note This patient required my direct & personal management of CC.: No Attestation - Physician/ MARANDA Attestation Patient care was provided by Advanced Practice Provider:: Yes Advanced Practice Provider:: Parul Karimi Advanced Practice Provider documentation review:: The Mid-level provider documentation, treatment plan and medical decision making was reviewed by the physician who agrees with all treatment and medical decision making by the MLP. The physician spent face to face time with patient:: No Advanced Practice Provider documentation review:: Supervising physician onsite and consulted in the evaluation and care of this patient. The physician did not have a face to face encounter with the patient.
[2019-09-27 20:14] LABS: BASO# 0.02 X1000 (0.0-0.2); BASO% 0.2 % (0.0-0.8); EOS# 0.01 X1000 (0.0-0.7); EOS% 0.1 % (0.0-10.0); HEMATOCRIT 38.7 % (37.0-47.0); IMM GRAN# 0.03 X1000 (0.0-0.04); IMM GRAN% 0.3 % (0.0-0.5); LYMPH# 1.21 X1000 (1.2-3.4); LYMPH% 13.2 % (20.5-51.1); MCHC 33.6 g/dL (33-37); MCV 89.4 FL (81-99); MONO# 0.33 X1000 (0.11-0.59); MONO% 3.6 % (1.7-9.3); MPV 11.1 FL (7.4-10.4); NEUT% 82.6 % (42.2-75.2); PLT 279 X1000 (130-400); RBC 4.33 XMIL (4.2-5.4); RDW 12.9 % (11.5-14.5)
[2019-09-27 20:16] LABS: INR 0.95; PROTIME 12.7 Seconds (11.0-16.0)
--- NOTE | 2019-09-27 20:20 | Diag Imaging Result Doc PS360 ---
FLAT/UPRIGHT ABD/1 VIEW CHEST - 09/27/2019 INDICATION: n/v/d TECHNIQUE: COMPARISON: 02/13/2019 FINDINGS: The chest is clear. There is a nonobstructive bowel gas pattern. No free air or abnormal calcifications. IMPRESSION: Negative exam. Electronically signed by Lyle Erwin 09/27/2019 8:18 PM
[2019-09-27 20:32] LABS: AGAP 14; ALB/GLOB RATIO 1.1; ALBUMIN 3.4 g/dL (3.5-5.0); ALKALINE PHOSPHATASE 84 U/L (32-104); BUN 16 mg/dL (8-22); CALCIUM 7.8 mg/dL (8.8-10.2); CHLORIDE 92 mmol/L (98-107); COSMO 285; CREATININE 0.9 mg/dL (0.5-0.9); ESTIMATED GFR > 60; GLUCOSE 286 mg/dL (70-104); GOT 15 U/L (10-30); GPT 14 U/L (10-36); POTASSIUM 2.9 mmol/L (3.5-5.1); SODIUM 137 mmol/L (136-145); TCO2 31 mmol/L (25-35); TOTAL PROTEIN 6.4 g/dL (6.3-8.3)
[2019-09-27 20:44] LABS: URINE SOURCE CATH
[2019-09-27 20:46] LABS: BILIRUBIN URINE NEGATIVE (NEGATIVE); BLOOD URINE TRACE (NEGATIVE); COLOR ORANGE; GLUCOSE URINE 100 mg/dL (NEGATIVE); KETONE URINE TRACE mg/dL (NEGATIVE); LEUKOCYTES URINE LARGE (NEGATIVE); NITRITE URINE NEGATIVE (NEGATIVE); PH URINE 5.5; PROTEIN URINE 70 mg/dL (NEGATIVE); TURBIDITY URINE HAZY (CLEAR); UROBILINOGEN URINE 2 mg/dL (NORMAL)
[2019-09-27 20:48] LABS: UR EPITHELIAL CELLS <10 /HPF (<10); URINE BACTERIA 4+ /HPF; URINE RBC <10 /HPF (<10); URINE WBC TNTC /HPF (<10)
[2019-09-27] MEDS ORDERED: POTASSIUM CHLORIDE 20 MEQ/SWI 20 MEQ/100 ML IVPB IV SCH (21:00)
[2019-09-27 21:04] LABS: URINE CASTS NONE SEEN; URINE CRYSTALS NONE SEEN; URINE YEAST PRESENT
[2019-09-27] MEDS ORDERED: ROCEPHIN 1 GM in NS 50 ML IV ONE (21:10)
[2019-09-27] MEDS: ROCEPHIN 1 GM in NS 50 ML IV SCH (22:18)
[2019-09-27] MEDS ORDERED: TYLENOL PO PRN (22:18)
[2019-09-27] MEDS ORDERED: ZOFRAN IV PRN (22:18)
--- NOTE | 2019-09-27 22:19 | Diag Imaging Result Doc PS360 ---
CT ABD/PELVIS W/IV CONT ONLY - 09/27/2019 INDICATION: n/v/d COMPARISON: 02/13/2019 FINDINGS: There is some linear atelectasis in the left lower lobe. There is a moderate pericardial effusion that has enlarged since prior. Heart size remains normal. Stable cholecystectomy clips. Otherwise abdominal organs are all normal. No bowel obstruction or inflammation. There is a Montes catheter in the urinary bladder. There is significant urinary bladder wall thickening indicating cystitis. There is nonspecific perirectal edema. There is severe vascular disease. There are moderate degenerative changes of the spine. No acute or suspicious bony lesion. IMPRESSION: 1. Severe cystitis. 2. Enlarging nonspecific pericardial effusion. 3. Nonspecific perirectal edema of uncertain significance. This exam was performed using automated exposure control, adjustment of mA or kV according to patient size, and/or use of iterative reconstruction technique Electronically signed by Lyle Erwin 09/27/2019 10:17 PM
--- NOTE | 2019-09-27 22:33 | HISTORY AND PHYSICAL ---
REASON FOR ADMISSION: A 5-day history of nausea, vomiting and diarrhea. HISTORY OF PRESENT ILLNESS: Ms. Ailyn Rodas a 63-year-old woman with a past medical history of type 2 diabetes with neuropathy. She also has a past medical history of hypothyroidism, hyperlipidemia, hypertension, prior thyroid cancer status post thyroidectomy, and diabetic gastroparesis. She comes in today complaining of a 5-day history of persistent nausea and vomiting for the first 3 days regardless of whether she ate or not. She states that for the last 2 days she has had a lot several dry heaving and nausea, and only vomits if she tries to take something orally. She has not had anything to eat for the last couple of days nor taken most of her medications. She admits to having diffuse nonspecific dull to crampy abdominal pain with no specific aggravating or relieving factors. He also complains of loose stools that are nonbloody and not related to meals. She denies any fever, but has been having occasional chills and headaches for the last couple of days. No dysuria or genitourinary complaints. No cardiorespiratory complaints. No recent use of antibiotics or close contacts with diarrhea. No change in her home medications recently. REVIEW OF SYSTEMS: Twelve systems was done, positive findings as per HPI. ALLERGIES: Metformin and Reglan. HOME MEDICATIONS: Lantus 60 units daily, gabapentin 150 mg at bedtime, Effexor 150 mg daily, Ativan 1 mg q.8 hours p.r.n., Synthroid 200 mcg daily, Novolin R sliding scale. PAST SURGICAL HISTORY: She has had a thyroidectomy, cholecystectomy, tubal ligation, left lumpectomy. SOCIAL HISTORY: She does not smoke, drink or use drugs. She is a retired crew dispatcher. FAMILY HISTORY: Notable for CA of the cervix, diabetes and heart disease in first-degree relatives. LABORATORY DATA: CT scan of the abdomen is pending. Upper x-ray ordered showed nonspecific findings. White count 9000, H/H 13 and 38, platelets 279,000, with 82% neutrophils. Potassium 2.9, BUN 60, creatinine 0.9, glucose 286, calcium 7.8, albumin 3.4. PT/PTT is normal. Urinalysis with too numerous to count WBCs, 4+ bacteria, 100 glucose, trace ketones. PHYSICAL EXAMINATION: GENERAL: A pleasant middle-aged white female in no acute distress. VITAL SIGNS: Blood pressure is 125/70, heart rate is 69, respiratory rate is 20, temperature is 97.6, O2 saturation is 97% on room air. GENERAL: He is alert and oriented to person, place and time with normal mood and affect. HEENT: Head: Normocephalic and atraumatic. Eyes: CYNDI, EOMI. She is mildly pale, not anicteric. CYNDI. EOMI. Oropharyngeal exam mild xerostomia with mild angular stomatitis. No sinus cyanosis. NECK: Supple. No JVD or carotid bruit. No thyromegaly. No lymphadenopathy. CHEST: Clear when auscultated. Good air entry in both lung faulkner. CARDIOVASCULAR: First and second sounds heard. No gallops, murmurs or rubs regular. ABDOMEN: Full, soft, with tenderness confined to the epigastrium and suprapubic area with no peritoneal signs. Bowel sounds are hypoactive. No mass or organomegaly. Rectal exam is deferred. Positive right CVA tenderness. EXTREMITIES: Decreased pulse volume, symmetrical, regular. No edema, clubbing or cyanosis noted. NEUROLOGIC: No gross focal deficits. SKIN: Intact. No breakdown, lesions or erythema. MUSCULOSKELETAL: Exam is grossly normal. ASSESSMENT: 1. Probable acute pyelonephritis. 2. Intractable nausea and vomiting jas to pyelonephritis, diabetic gastroparesis and/or acute hypokalemia. 3. Diabetic gastroparesis in uncontrolled diabetic. 4. Volume depletion. 5. Hypothyroidism. 6. Hypokalemia secondary to GI losses. PLAN: The patient was started on Rocephin and we will continue this pending cultures. Aggressive fluid and electrolyte replacement will be instituted. It is hoped that with antiemetics and replacement of potassium and tighter control of her blood sugars, her nausea and vomiting should improve. CT scan of the abdomen was ordered to rule out an alternative diagnosis for her intractable nausea and vomiting especially in light of the fact that she has gastroparesis. If this is grossly negative, we will continue the plan as outlined above. Otherwise, if an alternative diagnosis is discovered, we will make the necessary changes to address this. We will decrease the patient's long-acting insulin in light of the fact that her intake has diminished and continue with sliding scale. Please check TSH and A1c in the a.m. and magnesium. cc: Avery Morris MD MTDD
[2019-09-27] MEDS: LOVENOX SUBQ SCH (23:09)
[2019-09-28] MEDS: NS + KCL 20 MEQ 1,000 ML IV SCH ×2 (03:35→06:10)
[2019-09-28] MEDS: HUMALOG SUBQ SCH ×3 (06:10→17:34)
[2019-09-28] MEDS: PRILOSEC PO SCH (06:16)
[2019-09-28] MEDS ORDERED: SYNTHROID PO SCH (07:00)
[2019-09-28 07:28] LABS: BASO# 0.02 X1000 (0.0-0.2); BASO% 0.2 % (0.0-0.8); EOS# 0.04 X1000 (0.0-0.7); EOS% 0.5 % (0.0-10.0); HEMATOCRIT 37.9 % (37.0-47.0); HEMOGLOBIN 12.6 g/dL (12.0-16.0); IMM GRAN# 0.02 X1000 (0.0-0.04); IMM GRAN% 0.2 % (0.0-0.5); LYMPH# 2.75 X1000 (1.2-3.4); LYMPH% 31.3 % (20.5-51.1); MCH 29.9 PG (27-31); MCHC 33.2 g/dL (33-37); MCV 89.8 FL (81-99); MONO# 0.43 X1000 (0.11-0.59); MONO% 4.9 % (1.7-9.3); MPV 10.8 FL (7.4-10.4); NEUT# 5.54 X1000 (1.4-6.5); NEUT% 62.9 % (42.2-75.2); PLT 272 X1000 (130-400); RBC 4.22 XMIL (4.2-5.4); RDW 12.8 % (11.5-14.5)
[2019-09-28 07:33] LABS: HEMOGLOBIN A1C 9.3 % (4.8-6.0)
[2019-09-28 07:41] LABS: BUN 12 mg/dL (8-22); CALCIUM 7.9 mg/dL (8.8-10.2); CHLORIDE 91 mmol/L (98-107); COSMO 269; CREATININE 0.9 mg/dL (0.5-0.9); ESTIMATED GFR > 60; GLUCOSE 116 mg/dL (70-104); GPT 11 U/L (10-36); POTASSIUM 4.2 mmol/L (3.5-5.1); SODIUM 134 mmol/L (136-145); TOTAL BILIRUBIN 0.47 mg/dL (0.20-1.00); TOTAL PROTEIN < 0.2 g/dL (6.3-8.3)
[2019-09-28 07:55] LABS: ALBUMIN 3.7 g/dL (3.5-5.0); ALKALINE PHOSPHATASE 81 U/L (32-104); GOT 13 U/L (10-30); MAGNESIUM 2.1 mg/dL (1.5-2.7); TCO2 32 mmol/L (25-35)
[2019-09-28 07:57] LABS: AGAP 11
[2019-09-28] MEDS: EFFEXOR PO SCH (08:42)
[2019-09-28] MEDS ORDERED: LANTUS INSULIN SUBQ SCH (09:00)
[2019-09-28] MEDS ORDERED: SODIUM CHLORIDE 0.9% INJ PRN (10:08)
--- NOTE | 2019-09-28 12:08 | PROGRESS NOTE ---
DATE: 09/28/2019 SUBJECTIVE: The patient seems to be doing a little bit better. She is still complaining of some nausea. She is having chronic diarrhea. As per the patient, she has a history of gastroparesis. Her hemoglobin A1c is actually 9.3, so it is not well controlled. Her TSH level on the other hand is 93.2, but it has been high since 2017. Prior to this one, on 02/15/2019, it was 99.6. She is on levothyroxine by mouth, but since she is having nausea, vomiting, and diarrhea, I will switch it to IV. PHYSICAL EXAMINATION: Vital Signs: Temperature 98.6 degrees, pulse 72, respiratory rate 18, blood pressure 145/74, oxygen saturation 99 on room air. HEENT: Head normocephalic. No trauma. PERRLA. Neck: Supple. No JVD. No masses. Central trachea. Chest: Clear to auscultation. No wheezing. No rales. Abdomen: Soft. Some tenderness to palpation at the level of the suprapubic area, with no signs of peritoneal irritation. Extremities: No edema, no clubbing, no cyanosis. Neurological: The patient is awake and alert. She is oriented. She is following commands. LABORATORY DATA: WBC 8.8, hemoglobin 12.6, hematocrit 37.9, platelets 272,000. Sodium 134, potassium 4.2, chloride 91, bicarbonate 32, BUN 12, creatinine 0.9, glucose 116, calcium 7.9. TSH 93.2. ASSESSMENT AND PLAN: 1. Urinary tract infection. As per the patient, she has some discomfort at the level of the suprapubic area, but she is not having urinary symptoms. She does have a gram-negative mali in the urine. I will continue with antibiotics. She may have a neurogenic bladder, probably because of the uncontrolled diabetes since she also has gastroparesis. Will continue to monitor, and I will continue with intravenous fluids and antibiotics for now. 2. Intractable nausea and vomiting, likely due to gastroparesis and/or acute infection. Will continue with the same management. She seems to be better today, and she tried to eat something in the morning, but she got a little bit sick. 3. Hypokalemia, resolved. 4. Diabetic gastroparesis, likely due to uncontrolled type 2 diabetes. I have placed this patient back on her home medications. Let us see how she does. 5. Volume depletion. She seems to be better. Will continue with intravenous fluids. 6. Hypothyroidism. The TSH is really high. As per the patient, she has chronic diarrhea. I wonder if she has also malabsorption. It looks like she is on levothyroxine, and she apparently is taking this medication at home. I will ask for a T4 level tomorrow, and I will continue with intravenous levothyroxine for now. 7. Chronic diarrhea. As per the patient, she has been having diarrhea for a very long time. I am not quite sure if she has been followed up with a scene shifter already. I do believe Dr. Falk saw her a long time ago. I will see how she does, but I will probably ask Gastroenterology Department to evaluate this patient at some point, either as an inpatient or outpatient. cc: Darion Rosales MD
[2019-09-28] MEDS: 1/2 NS 1,000 ML IV SCH (14:34)
[2019-09-28] MEDS: ATIVAN PO PRN (14:43)
[2019-09-28] MEDS: LOVENOX SUBQ SCH (20:24)
[2019-09-28] MEDS: ROCEPHIN 1 GM in NS 50 ML IV SCH (20:24)
[2019-09-28] MEDS ORDERED: NEURONTIN PO SCH (21:00)
[2019-09-29] MEDS: HUMALOG SUBQ SCH ×5 (00:24→21:28)
[2019-09-29] MEDS: ROCEPHIN 1 GM in NS 50 ML IV SCH (00:25)
[2019-09-29] MEDS: LOVENOX SUBQ SCH ×2 (00:25→22:29)
[2019-09-29] MEDS: PRILOSEC PO SCH (06:57)
[2019-09-29] MEDS: 1/2 NS 1,000 ML IV SCH ×3 (06:57→16:47)
[2019-09-29] MEDS: SYNTHROID IV SCH (06:58)
[2019-09-29 07:00] LABS: AGAP 11; BUN 8 mg/dL (8-22); CALCIUM 7.6 mg/dL (8.8-10.2); CHLORIDE 97 mmol/L (98-107); COSMO 272; CREATININE 0.8 mg/dL (0.5-0.9); ESTIMATED GFR > 60; GLUCOSE 68 mg/dL (70-104); POTASSIUM 3.3 mmol/L (3.5-5.1); SODIUM 138 mmol/L (136-145); TCO2 30 mmol/L (25-35)
[2019-09-29] MEDS ORDERED: KLOR-CON PO ONE (07:41)
[2019-09-29] MEDS: LANTUS INSULIN SUBQ SCH (09:28)
[2019-09-29] MEDS: EFFEXOR PO SCH (09:28)
[2019-09-29] MEDS: ATIVAN PO PRN (09:32)
--- NOTE | 2019-09-29 14:28 | PROGRESS NOTE ---
DATE: 09/29/2019 SUBJECTIVE: The patient is still complaining of some nausea, decreased appetite, and she is still having some diarrhea even though has not been documented. She has a history of gastroparesis, hemoglobin A1c is 9.3. Her TSH level is really high, and I have placed this patient on IV treatment. OBJECTIVE: Vital signs: Temperature 97.9 degrees, pulse 66, respiratory rate 17, blood pressure 112/69, oxygen saturation 98 on room air. HEENT: Head normocephalic, no trauma, PERRLA. Neck: Neck is supple. No JVD. No masses. Central trachea. Chest: Clear to auscultation. No wheezing. No rales. Abdomen: Soft. She has some tenderness to palpation at the level of the suprapubic area. No signs of peritoneal irritation. Extremities: No edema, no clubbing, no cyanosis. Neurological: The patient is awake, she is alert, she is oriented, she is following commands, but she does have generalized weakness. LABORATORY: Sodium 138, potassium 3.3, chloride 97, bicarbonate 30, BUN 8, creatinine 0.8, glucose 68, calcium 7.6. ASSESSMENT AND PLAN: 1. Urinary tract infection with a positive culture that showed Escherichia coli. I have placed this patient on cefazolin and I will continue with that, hopefully upon discharge she can go with cephalosporins or she can go with Bactrim, which is also sensitive. If she is having diarrhea even though the C difficile toxin and antigen, white blood cell counts results are okay, I will get Gastroenterology Department to evaluate this patient. 2. Intractable nausea and vomiting, likely due to gastroparesis and/or acute infection. 3. Hypokalemia. I will replace the potassium. 4. Diabetes, gastroparesis, likely due to uncontrolled type 2 diabetes. I have placed this patient back on her Lantus, but she had an episode of hypoglycemia likely because she is not eating too much, so will decreased by half the dose of Lantus from 40 to 20 units to see how she does. 5. Dehydration. Seems to be euvolemic at this moment. 6. Hypothyroidism. The TSH is really high. I have placed this patient with IV treatment. I do believe she has some kind of malabsorption. 7. Uncontrolled type 2 diabetes, continue with the same management for now. She had an episode of hypoglycemia. I will decrease the dose of Lantus. 8. Chronic diarrhea. It looks like it has been chronic. She has been evaluated before by Dr. Falk. We will monitor for now. Gastroenterology Department will probably evaluate this patient as an inpatient or outpatient if she does not get better. cc: Darion Rosales MD
[2019-09-29] MEDS: KEFZOL 1 GM/D5W 1 GM/50 ML IVPB IV SCH ×2 (14:38→18:38)
[2019-09-30] MEDS: KEFZOL 1 GM/D5W 1 GM/50 ML IVPB IV SCH ×3 (02:14→17:28)
[2019-09-30] MEDS: SYNTHROID IV SCH ×2 (05:27→06:03)
[2019-09-30] MEDS: PRILOSEC PO SCH ×2 (05:28→06:03)
[2019-09-30] MEDS: 1/2 NS 1,000 ML IV SCH (05:28)
[2019-09-30] MEDS: HUMALOG SUBQ SCH ×4 (06:03→23:09)
[2019-09-30 07:22] LABS: AGAP 12; BUN 4 mg/dL (8-22); CHLORIDE 98 mmol/L (98-107); COSMO 273; CREATININE 0.8 mg/dL (0.5-0.9); ESTIMATED GFR > 60; GLUCOSE 98 mg/dL (70-104); MAGNESIUM 2.1 mg/dL (1.5-2.7); PHOSPHORUS 2.6 mg/dL (2.7-4.5); POTASSIUM 3.5 mmol/L (3.5-5.1); SODIUM 138 mmol/L (136-145); TCO2 28 mmol/L (25-35)
[2019-09-30] MEDS: LANTUS INSULIN SUBQ SCH (10:52)
[2019-09-30] MEDS: CULTURELLE PO SCH ×2 (10:53→23:08)
[2019-09-30] MEDS: NS 1,000 ML IV SCH (10:54)
[2019-09-30] MEDS: ATIVAN PO PRN ×2 (10:54→23:08)
[2019-09-30] MEDS: EFFEXOR PO SCH (10:54)
[2019-09-30] MEDS: CLINIMIX E 4.25%-5% SOLUTION 1,000 ML IV SCH (10:54)
--- NOTE | 2019-09-30 13:23 | PROGRESS NOTE ---
DATE: 09/30/2019 SUBJECTIVE: This patient seems to be feeling better. She has been tolerating her liquid diet, and I will advance it to a soft diet. I will add Culturelle to her medications. I requested an evaluation by Gastroenterology Department, who already talked to the patient, and they will follow this patient up as an outpatient. If she is able to tolerate her diet today and her blood sugar is controlled, I will discharge this patient in the morning. OBJECTIVE: Vital Signs: Temperature 98.2 degrees, pulse 75, respiratory rate 16, blood pressure 156/75, oxygen saturation 98 on room air. HEENT: Head normocephalic. No trauma. PERRLA. Neck: Supple. No JVD. No masses. Central trachea. Chest: Clear to auscultation. No wheezing. No rales. Abdomen: Soft. Mild discomfort to palpation at the level of the periumbilical and suprapubic area. No signs of peritoneal irritation. Extremities: No edema, no clubbing, no cyanosis. Neurological: The patient is awake. She is alert. She is oriented. She is following commands, but she does have generalized weakness. LABORATORY DATA: Sodium 138, potassium 3.5, chloride 98, bicarbonate 28, BUN 4, creatinine 0.8, glucose 98, calcium 8. Phosphorus 2.6, magnesium 2.1. ASSESSMENT AND PLAN: 1. Urinary tract infection with a positive urine culture that showed Escherichia coli. I will continue with cefazolin for the time being, and upon discharge, probably she can go with Bactrim, which is also sensitive. She has been having diarrhea for a very long time, but it seems to be getting better after fluids and treatment. I discussed the case with Gastroenterology Department, and they will monitor this patient as an outpatient. I will add Culturelle to her medications. 2. Intractable nausea and vomiting, likely due to gastroparesis, acute infection. She seems to be better. I will advance the diet today. If she tolerates the diet, I will discharge her tomorrow. 3. Hypokalemia, resolved. 4. Diabetes with gastroparesis, likely due to uncontrolled type 2 diabetes. I have placed this patient back on her Lantus. She had an episode of mild hypoglycemia, even though I decreased her normal dose by half, probably because she has not been eating. I have placed this patient today back on a diet other than liquids. Let us see how she does. 5. Dehydration, resolved. 6. Hypothyroidism. Her TSH is really high and it has been high for a very long time. I have placed this patient on intravenous treatment instead of oral. I am concerned about some kind of malabsorption. 7. Uncontrolled type 2 diabetes. 8. Chronic diarrhea. She will be monitored as an outpatient by Gastroenterology Department. Will monitor for now. She will be placed on Culturelle. cc: Darion Rosales MD
--- NOTE | 2019-09-30 14:32 | GASTROENTEROLOGY CONSULTATION ---
DATE: 09/30/2019 REASON FOR CONSULTATION: Chronic diarrhea. HISTORY OF PRESENT ILLNESS: This is a 63-year-old female that we have not seen in the office before. The patient was seen by Dr. Falk in hospital consultation in 2017. Indications at that time were for nausea, vomiting abdominal pain, diarrhea, and rectal bleeding. Patient had proctitis/colitis by CT scan back then, in 2017. The patient had come into the hospital for about a 5-day history of nausea, vomiting, and unable to eat. She had also reported persistent diarrhea. Dr. Trevizo has spoken with the patient and she states her diarrhea has been chronic over the last year. She has frequent loose bowel movements, sometimes up to 3 to 4 times a day, and it is usually after eating. She states sometimes she does not have the urge to have a bowel movement and does not realize it and has fecal incontinence. She has been having to wear diapers over the last 9 months. She does see a doctor at [facility] for gastroparesis. The patient was diagnosed with a urinary tract infection on admission and is undergoing antibiotics. The patient by intake and output report has not had a bowel movement since admission. Stool studies are pending due to that reason. PAST MEDICAL HISTORY: Diabetes, gastroparesis, anxiety/depression, GERD, history of peptic ulcer disease, history of constipation alternating with diarrhea, migraines, history of thyroid cancer. PAST SURGICAL HISTORY: Bilateral tubal ligation, cholecystectomy, breast biopsy, thyroidectomy. ALLERGIES: Metformin causing nausea and vomiting, Reglan causing nausea and vomiting. HOME MEDICATIONS: Gabapentin 150 mg every night, Lantus 60 units subcutaneous every night, Novolin R subcutaneous before meals and at bedtime, Synthroid 200 mcg daily, lorazepam 1 mg every 8 hours as needed, Effexor 150 mg daily. FAMILY HISTORY: She has a family history for hypertension, heart disease, and breast cancer. No family history reported for colon cancer. SOCIAL HISTORY: She is a , lives alone. She is retired. No tobacco or alcohol use. REVIEW OF SYSTEMS: Per history of present illness. VITAL SIGNS: Temperature 98.2 degrees, pulse 75, respirations 16, blood pressure 156/75. PHYSICAL EXAMINATION: No physical exam performed today. LABORATORY DATA: Hematology: WBC 8.80, hemoglobin 12.6, hematocrit 37.9, MCV 89.8, platelets 272,000. Coagulation: Prothrombin time 12.7, INR 0.95. Chemistry: Sodium 138, potassium 3.5, chloride 98, CO2 of 28, BUN 4, creatinine 0.8, glucose 98, hemoglobin A1c 9.3, calcium 8.0, phosphorus 2.6, magnesium 2.1. Urinalysis was positive for urinary tract infection. IMAGING: Abdominal and pelvis CT scan showed severe cystitis, enlarging nonspecific paracardial effusion, nonspecific perirectal edema. ASSESSMENT AND PLAN: 1. Urinary tract infection showing Escherichia coli. The patient is on antibiotics. 2. Nausea and vomiting, multifactorial. Patient does have a history of gastroparesis. Also possibility of relation to her urinary tract infection. 3. Chronic diarrhea. The patient reports chronic diarrhea over the last year. She has seen a doctor at [facility] for gastroparesis. The patient has been started on Culturelle. Stool studies are pending. It is noted that she has not had a bowel movement since admission. Per patient's report, she has up to 3 to 4 loose stools after eating. We will add Metamucil powder for a bulking agent. 4. Further plans will be made according to her progress. We will continue to follow. I would recommend patient follow up with us as an outpatient for further evaluation of her chronic diarrhea, which is not an acute issue she is having. She has been having this over the last year. I have discussed this case with Dr. Mills and he has also discussed the case with the hospitalist covering for her today. Thank you for this consultation. Dictated by PORSHA Ward for Dhruv Trevizo MD cc: PORSHA Queen MD
[2019-09-30] MEDS: METAMUCIL POWDER PACKET PO SCH (17:28)
[2019-09-30] MEDS: LOVENOX SUBQ SCH (23:08)
[2019-10-01] MEDS: KEFZOL 1 GM/D5W 1 GM/50 ML IVPB IV SCH ×2 (02:56→10:01)
[2019-10-01] MEDS: PRILOSEC PO SCH (06:18)
[2019-10-01] MEDS: SYNTHROID IV SCH (06:18)
[2019-10-01] MEDS: HUMALOG SUBQ SCH (06:23)
[2019-10-01 07:12] LABS: HEMOGLOBIN 11.9 g/dL (12.0-16.0); MCH 30.5 PG (27-31); MCV 89.7 FL (81-99); MPV 10.7 FL (7.4-10.4); RBC 3.9 XMIL (4.2-5.4); RDW 12.8 % (11.5-14.5); WBC 7.12 X1000 (4.8-10.8)
[2019-10-01 07:46] LABS: AGAP 12; BUN 4 mg/dL (8-22); CALCIUM 7.9 mg/dL (8.8-10.2); CHLORIDE 98 mmol/L (98-107); COSMO 276; CREATININE 0.7 mg/dL (0.5-0.9); ESTIMATED GFR > 60; GLUCOSE 162 mg/dL (70-104); POTASSIUM 3.4 mmol/L (3.5-5.1); SODIUM 138 mmol/L (136-145); TCO2 28 mmol/L (25-35)
[2019-10-01 07:47] VITALS: BP 136/83
[2019-10-01] MEDS: NS 1,000 ML IV SCH (10:01)
[2019-10-01] MEDS: CULTURELLE PO SCH (10:01)
[2019-10-01] MEDS: CLINIMIX E 4.25%-5% SOLUTION 1,000 ML IV SCH (10:01)
[2019-10-01] MEDS: EFFEXOR PO SCH (10:01)
[2019-10-01] MEDS: METAMUCIL POWDER PACKET PO SCH (10:02)
[2019-10-01] MEDS: LANTUS INSULIN SUBQ SCH (10:02)
--- NOTE | 2019-10-01 12:06 | DISCHARGE SUMMARY ---
ADMISSION DATE: 09/27/2019 DISCHARGE DATE: 10/01/2019 ADMISSION DIAGNOSES: 1. Probable acute pyelonephritis. 2. Intractable nausea and vomiting due to pyelonephritis, diabetic gastroparesis, and/or acute hypokalemia. 3. Diabetic gastroparesis in uncontrolled diabetic. 4. Volume depletion. 5. Hypothyroidism. 6. Hypokalemia with gastrointestinal losses. DISCHARGE DIAGNOSES: 1. Urinary tract infection with a positive urine culture with Escherichia coli that is Extended- spectrum beta lactamase (ESBL) negative, resistant to ampicillin, sulbactam, and Levaquin. 2. Intractable nausea and vomiting. 3. Hypokalemia, which is resolved. 4. Diabetes, with gastroparesis. 5. Dehydration, resolved. 6. Hypothyroidism, stable, but the TSH has been elevated for a long time. 7. Uncontrolled diabetes mellitus, type 2. 8. Chronic diarrhea. CONSULTATIONS: Gastroenterology, Dr. Lyons. SURGERIES AND PROCEDURES: None. HOSPITAL COURSE: Ms. Ailyn Rodas is a 63-year-old female, with medical history of diabetes and gastroparesis, who presented here with complaints of a 5-day history of nausea, vomiting, and diarrhea. Denies blood in stool. Gastroenterology was consulted. She was placed on Culturelle, and due to the nausea, vomiting, and diarrhea she was on IV nutrition, Clinimix, Prilosec p.o. Bowel regimen also included Metamucil. She was found to have a urinary tract infection that was E coli positive that had resistance to ampicillin, sulbactam, and levofloxacin. Antibiotic regimen was Kefzol 1 g IV q.8 hours, and she will go home on oral antibiotics as well. Clostridium difficile studies were ordered, but it looks like the diarrhea had pretty much stopped from the time she was admitted, so a sample was not obtained. The nausea and vomiting also improved and she was stable for discharge home. DISCHARGE VITAL SIGNS: Temperature 98.2 degrees, heart rate 73, respiratory rate 18, blood pressure 136/83, O2 saturation 97% on room air. DISCHARGE LAB DATA: White blood cells 7,000, hemoglobin 11, hematocrit 35, platelet count 238,000. Sodium 138, potassium 3.4, BUN 4, creatinine 0.7, glucose 162. Calcium 7.9. Micro urine culture negative ESBL, resistant to Levaquin, ampicillin, sulbactam. PERTINENT IMAGING: On the , abdominal x-ray negative examination, and then an abdominal pelvic CT, severe cystitis, enlarging, nonspecific pericardial effusion. Nonspecific perirectal edema of uncertain significance. DISCHARGE MEDICATIONS: 1. Synthroid 200 mcg p.o. daily. 2. Metamucil once daily. 3. Insulin Lantus 20 units subcutaneous daily. 4. Keflex 500 mg p.o. every 12 hours for 7 days. 5. Culturelle 1 dose twice daily. 6. Regular insulin before meals, sliding scale and at bedtime. 7. Lorazepam 1 mg p.o. every 8 hours p.r.n. 8. Neurontin 150 mg p.o. nightly. 9. Effexor 150 mg p.o. daily. DISCHARGE DIET: Soft diet. Follow diet. Eat small portions of food multiple times a day, better if you have a dietitian on board. DISCHARGE ACTIVITY: As tolerated. DISCHARGE INSTRUCTIONS: If your condition changes, contact physician and/or return to the emergency department. Changes may include, but not limited to shortness of breath, increased fatigue, excessive bleeding, unexplained weight loss or gain, unmanageable pain, signs or symptoms of infection. PHYSICIAN FOLLOWUP: Dr. Trevizo on 10/29/2019 at 2:45 p.m., and then Dr. Aguilar on 10/08/2019 at 1 p.m. DISCHARGE DISPOSITION: Home. Dictated by PORSHA Rodriguez for Darion Rosales MD cc: PORSHA Rodriguez MD
== END 2019-10-01 12:54 | disposition home health service (06) | DRG 690 ==
LOC: ED 19:30 → SUATTDRO 19:31 → 3N 22:15
PROVIDERS: ATTEND Internal Medicine